=== PATIENT | male | born 1950 ===

== ENCOUNTER 2025-06-22 06:31 | Emergency (ER) | payer MEDICAID, SELFPAY ==
--- NOTE | ~2025-06-22 | CT_ITS ---
CLINICAL HISTORY: trauma CT head without contrast Comparison: None provided Findings: No intra-axial mass, midline shift, hydrocephalus, or acute hemorrhage. Prominence of the sulci and ventricles are compatible with age-related volume loss. Periventricular white matter hypodensities are nonspecific though likely reflect chronic sequelae of microangiopathic etiology. The visualized paranasal sinuses and mastoid air cells are normal. The orbits are unremarkable. There is no acute fracture. IMPRESSION: No acute intracranial findings. This document has been electronically signed by: Guzman Avendano MD on 06/22/2025 08:56:43
--- NOTE | ~2025-06-22 | CT_ITS ---
CLINICAL HISTORY: trauma CT cervical spine without contrast Comparison: None provided Findings: There is straightening of the normal cervical lordosis. Multilevel degenerative changes are demonstrated from C3 through T1 with intervertebral disc and vertebral body height loss with ankylosis of C3 and C4 and C6 and C7, in addition to uncovertebral hypertrophy and osteophyte formation. Findings result in moderate canal stenosis at C3-C4, C4-C5 and C5-C6. No acute fractures or dislocations. No acute findings on limited view of the intracranial contents. Soft tissues of the neck are normal. Lung apices are clear. IMPRESSION: No acute cervical spine findings. This document has been electronically signed by: Guzman Avendano MD on 06/22/2025 08:53:17
[2025-06-22 06:36] VITALS: BP 144/104; PULSE 79; O2SAT 98
[2025-06-22 06:40] VITALS: BP 139/106; PULSE 71; RESP 20; TEMP 36.6; O2SAT 99; BMI 27.2
--- OUTSIDE RECORDS SUMMARY | 2025-06-22 06:56 | XMS_ITS | Encounter Summary ---
Author Organization [employer] Address [address] [place] [address] Care Team Providers Care Forestry Fire Aid Name Role Phone Regino Brooke MD Primary Care Provider [phone] Encounter Details Date Type Department Care Team (Late st Contact Info) Description 07/20/2024 Lab Requisition [facility] - Main Lab [address] [place] [address] Regino Brooke MD [address] [place] [address] COVID-19 Social History Tobacco Use Types Packs/Day Years Used Date Smoking Tobacco: Never Assessed Sex and Gender Information Value Date Recorded Sex Assigned at Not on file Legal Sex Male 8:35 PM EST Gender Identity Not on file Sexual Orientation Not on file documented as of this encounter Plan of Treatment Not on file documented as of this encounter Procedures Procedure Name Priority Date/Time Associated Diagnosis Comments [id number], RSV, FLU A AND B QUALITATIVE RT-PCR, LOCAL REFERENCE LAB Routine 07/20/2024 7:00 AM EST COVID-19 documented in this encounter Results * (ABNORMAL) [id number], RSV, Influenza A and B qualitative RT-PCR (07/20/2024 7:00 AM EST) SARS COV-2 Not Detected Not Detected LAB MOLECULAR DIAGNOSTICS METHOD 07/20/2024 12:40 PM EST [facility] H[facility] LAB Comment: Disclaimer: The manner in which this information is used to guide patient care is the responsibility of the healthcare provider. Testing was performed using the [employer] m SARS-CoV-2 test. This test has been authorized by FDA under an Emergency Use Authorization (EUA). This test is only authorized for the duration of time the declaration that circumstances exist justifying the authorization of the emergency use of in vitro diagnostic tests for detection of SARS-CoV-2 virus and/or diagnosis of COVID-19 infection under section 564(b)(1) of the Act, 21 U.S.C. 360bbb- 3(b)(1), unless the authorization is terminated or revoked sooner. Fact sheet for Healthcare Providers can be found at: https://www.fda.gov/media/297598/download Fact sheet for Patients can be found at: https://www.fda.gov/media/374319/download Influenza A PCR Detected(A ) Not Detected LAB MOLECULAR DIAGNOSTICS METHOD 07/20/2024 12:[address] [facility] Influenza B PCR Not Detected Not Detected LAB MOLECULAR DIAGNOSTICS METHOD 07/20/2024 12:40 PM [facility] RSV PCR Not Detected Not Detected LAB MOLECULAR DIAGNOSTICS METHOD 07/20/2024 12:40 PM [facility] Swab Nasopharyngeal structure / Unknown 07/20/2024 7:00 AM EST 07/20/2024 9:14 AM EST Regino Brooke MD LAB MICROBIOLOGY - GENERAL O RDERABLES Final Result [facility] [address] [place] [address], documented in this encounter Visit Diagnoses Diagnosis COVID-19 documented in this encounter Additional Health Concerns Infection Onset Date Last Indicated Resolved Time Respiratory Rule-Out 07/20/2024 07/20/20242 024 12:40 PM EST Influenza 07/20/2024 07/20/2024 08/13/2024 7:05 PM EST C. difficile Rule-Out 02/16/2025 02/16/20252024 11:14 AM EDT documented as of this encounter Care Teams Forestry Fire Aid Relationship Specialty Start Date End Date Regino Brooke MD [address] [place] [address] PCP - General Family Medicine 07/12/24 documented as of this encounter
--- OUTSIDE RECORDS SUMMARY | 2025-06-22 06:56 | XMS_ITS | Encounter Summary ---
Author Organization [facility] Address [address] [place] [address] Care Team Providers Care Hardware Supplies Sales Representative Name Role Phone Regino Brooke MD Primary Care Provider [phone]- [phone] Encounter Details Date Type Department Care Team (Latest Contact Info) Description 07/23/2024 Lab Requisition [facility] - Main Lab [address] [place] [address] Regino Brooke MD [facility] [place] [address] Influenza due to identified novel influenza A virus with gastrointestinal manifestations Social History Tobacco Use Types Packs/Day Years [...] Procedure Name Priority Date/Time Associated Diagnosis Comments COMPLETE BLOOD COUNT Routine 07/23/2024 4:55 AM EST Influenza due to identified novel influenza A virus with gastrointestinal manifestations BASIC METABOLIC PANEL Routine 07/23/2024 4:55 AM EST Influenza due to identified novel influenza A virus with gastrointestinal manifestations documented in this encounter Results * (ABNORMAL) Basic metabolic panel (07/23/2024 4:55 AM EST) Sodium 139 133 - 145 mmol/L LAB CHEMISTRY METHOD 07/23/2024 2:39 PM EST [facility] Potassium 3.8 3.5 - 5.5 mmol/L LAB CHEMISTRY METHOD 07/23/2024 2:39 PM EST [facility] Chloride 105 96 - 110 mmol/L LAB CHEMISTRY METHOD 07/23/2024 2:39 PM [facility] CO2 24 21 - 32 mmol/L LAB CHEMISTRY METHOD 07/23/2024 2:39 PM [facility] Anion Gap 10 3 - 11 LAB CHEMISTRY METHOD 07/23/2024 2:39 PM [facility] Glucose 73 70 - 100 mg/dL LAB CHEMISTRY METHOD 07/23/2024 2:39 PM [facility] BUN 16 5 - 25 mg/dL LAB CHEMISTRY METHOD 07/23/2024 2:39 PM [facility] Creatinine 1.29 0.70 - 1.30 mg/dL LAB CHEMISTRY METHOD 07/23/2024 2:39 PM [facility] eGFR 57(L) >=60 mL/min/1. 73m2 LAB CHEMISTRY METHOD 07/23/2024 2:39 PM [facility] Comment:Calculation based on the Chronic Kidney Disease Epidemiology Collaboration (CKD-EPI) equation refit without adjustment for race. BUN/Creatinine Ratio 12.4 LAB CHEMISTRY METHOD 07/23/2024 2:39 PM [facility] Calcium 8.1(L) 8.5 - 10.5 mg/dL LAB CHEMISTRY METHOD 07/23/2024 2:39 PM [facility] Blood Venous blood specimen / Unknown Venipuncture / Unknown 07/23/2024 4:55 AM EST 07/23/2024 11:02 AM EST us Regino Brooke MD LAB BLOOD ORDERABLES Final R esult [facility] [address] [place] [address], * (ABNORMAL) Complete blood count (07/23/2024 4:55 AM EST) WBC 3.9(L) 4.8 - 10.8 K/mcL LAB HEMETOLOGY METHOD 07/23/2024 12:29 PM [facility] RBC 4.40(L) 4.50 - 5.50 M/mcL LAB HEMETOLOGY METHOD 07/23/2024 12:29 PM [facility] Hemoglobin 13.8 13.5 - 17.5 g/dL LAB HEMETOLOGY METHOD 07/23/2024 12:29 PM [facility] Hematocrit 43.0 42.0 - 54.0 % LAB HEMETOLOGY METHOD 07/23/2024 12:29 PM [facility] MCV 97.3 79.0 - 98.0 FL LAB HEMETOLOGY METHOD 07/23/2024 12:29 PM [facility] MCH 31.2 27.0 - 32.0 pcg LAB HEMETOLOGY METHOD 07/23/2024 12:29 PM [facility] MCHC 32.1 32.0 - 37.0 g/dL LAB HEMETOLOGY METHOD 07/23/2024 12:29 PM [facility] RDW 14.2 11.0 - 15.0 % LAB HEMETOLOGY METHOD 07/23/2024 12:29 PM [facility] Platelets 161 130 - 400 K/mcL LAB HEMETOLOGY METHOD 07/23/2024 12:29 PM [facility] MPV 9.6 7.0 - 11.0 FL LAB HEMETOLOGY METHOD 07/23/2024 12:29 PM [facility] NRBC 0.0 <1.0 % LAB HEMETOLOGY METHOD 07/23/2024 12:29 PM [facility] NRBC Absolute 0.00 <0.10 K/mcL LAB HEMETOLOGY METHOD 07/23/2024 12:29 PM [facility] Blood Venous blood specimen / Unknown Venipuncture / Unknown 07/23/2024 4:55 AM EST 07/23/2024 11:02 AM EST us Regino Brooke MD LAB BLOOD ORDERABLES Final R esult [facility] ([facility]) [facility] [address] [place] [address], documented in this encounter Visit Diagnoses Diagnosis Influenza due to identified novel influenza A virus with gastrointestinal manifestations documented in this encounter Additional Health Concerns Infection Onset Date Last Indicated Resolved Time Influenza 07/20/2024 07/20/2024 08/13/2024 7:05 PM EST C. difficile Rule-Out 02/16/2025 02/16/20252024 11:14 AM EDT documented as of this encounter Care Teams Hardware Supplies Sales Representative Relationship Specialty Start Date End Date Regino Brooke MD [address] [place] [address] PCP - General Family Medicine 07/12/24 documented as of this encounter
--- OUTSIDE RECORDS SUMMARY | 2025-06-22 06:56 | XMS_ITS | Encounter Summary ---
Author Organization [employer] Address [address] [place] [address] Care Team Providers Care Anesthesiologist And Critical Care Name Role Phone Regino Brooke MD Primary Care Provider [phone] Encounter Details Date Type Department Care Team (Late st Contact Info) Description 10/29/2024 Lab Requisition [facility] - Main Lab [address] [place] [address] Regino Brooke MD [address] [place] [address] Anemia, unspecified Social History Tobacco Use Types Packs/Day Years [...] Procedure Name Priority Date/Time Associated Diagnosis Comments CBC WITH AUTO DIFFERENTIAL Routine 10/29/2024 4:46 AM EDT Anemia, unspecified CBC AND DIFFERENTIAL Routine 10/29/2024 4:46 AM EDT Anemia, unspecified documented in this encounter Results * (ABNORMAL) CBC auto differential (10/29/2024 4:46 AM EDT) WBC 3.7(L) 4.8 - 10.8 K/[facility] LAB HEMETOLOGY METHOD 10/29/2024 12:27 PM EDT [facility] RBC 4.10(L) 4.50 - 5.50 M/mcL LAB HEMETOLOGY METHOD 10/29/2024 12:27 PM EDT [facility] Hemoglobin 13.2(L) 13.5 - 17.5 g/dL LAB HEMETOLOGY METHOD 10/29/2024 12:27 PM [facility] Hematocrit 39.7(L) 42.0 - 54.0 % LAB HEMETOLOGY METHOD 10/29/2024 12:27 PM [facility] MCV 96.8 79.0 - 98.0 FL LAB HEMETOLOGY METHOD 10/29/2024 12:27 PM [facility] MCH 32.2(H) 27.0 - 32.0 pcg LAB HEMETOLOGY METHOD 10/29/2024 12:27 PM [facility] MCHC 33.2 32.0 - 37.0 g/dL LAB HEMETOLOGY METHOD 10/29/2024 12:27 PM [facility] RDW 14.4 11.0 - 15.0 % LAB HEMETOLOGY METHOD 10/29/2024 12:27 PM [facility] Platelets 157 130 - 400 K/mcL LAB HEMETOLOGY METHOD 10/29/2024 12:27 PM [facility] MPV 9.5 7.0 - 11.0 FL LAB HEMETOLOGY METHOD 10/29/2024 12:27 PM [facility] NRBC 0.0 <1.0 % LAB HEMETOLOGY METHOD 10/29/2024 12:27 PM [facility] NRBC Absolute 0.00 <0.10 K/mcL LAB HEMETOLOGY METHOD 10/29/2024 12:27 PM [facility] Neutrophils Relative 42.1 % LAB HEMETOLOGY METHOD 10/29/2024 12:27 PM [facility] Lymphocytes Relative 41.7 % LAB HEMETOLOGY METHOD 10/29/2024 12:27 PM [facility] Monocytes Relative 10.4 % LAB HEMETOLOGY METHOD 10/29/2024 12:27 PM EDT [facility] Eosinophils Relative 5.2 % LAB HEMETOLOGY METHOD 10/29/2024 12:27 PM EDT [facility] Basophils Relative 0.3 % LAB [facility]Y [facility] Immature Granulocytes Relative 0.3 % LAB HEMETOLOGY METHOD 10/29/2024 12:27 PM EDT [facility] Neutrophils Absolute 1.55 1.50 - 7.00 K/mcL LAB HEMETOLOGY METHOD 10/29/2024 12:27 PM EDT [facility] Lymphocytes Absolute 1.53 1.00 - 5.00 K/mcL LAB HEMETOLOGY METHOD 10/29/2024 [facility] Monocytes Absolute 0.38 0.20 - 1.00 K/mcL LAB HEMETOLOGY METHOD 10/29/2024 12:27 PM EDT [facility] Eosinophils Absolute 0.19 0.00 - 0.50 K/mcL LAB HEMETOLOGY METHOD 10/29/2024 12:27 PM [facility] Basophils Absolute 0.01 0.00 - 0.20 K/mcL LAB HEMETOLOGY METHOD 10/29/2024 12:27 PM [facility] Immature Granulocytes Absolute 0.01 0.00 - 0.03 K/mcL LAB HEMETOLOGY METHOD 10/29/2024 12:27 PM T [facility] Blood Venous blood specimen / Unknown Venipuncture / Unknown 10/29/2024 4:46 AM EDT 10/29/2024 10:40 AM EDT us Regino Brooke MD LAB BLOOD ORDERABLES Final R esult [facility] [address] [place] [address], documented in this encounter Visit Diagnoses Diagnosis Anemia, unspecified documented in this encounter Additional Health Concerns Infection Onset Date Last Indicated Resolved Time C. difficile Rule-Out 02/16/2025 02/16/20252024 11:14 AM EDT documented as of this encounter Care Teams Anesthesiologist And Critical Care Relationship Specialty Start Date End Date Regino Brooke MD [address] [place] [address] PCP - General Family Medicine 07/12/24 documented as of this encounter
--- OUTSIDE RECORDS SUMMARY | 2025-06-22 06:56 | XMS_ITS | Encounter Summary ---
Author Organization [facility] Address [address] [place] [address] Care Team Providers Care Assistant Quality Manager Name Role Phone Regino Brooke MD Primary Care Provider [phone] Encounter Details Date Type Department Care Team (Late st Contact Info) Description 02/06/2025 Lab Requisition [facility] - Main Lab [address] [place] [address] Regino Brooke MD [address] [place] [address] Hypokalemia Social History Tobacco Use Types Packs/Day Years [...] Procedure Name Priority Date/Time Associated Diagnosis Comments MAGNESIUM Routine 02/07/2025 5:02 AM EDT Hypokalemia BASIC METABOLIC PANEL Routine 02/07/2025 5:02 AM EDT Hypokalemia documented in this encounter Results * Magnesium (02/07/2025 5:02 AM EDT) Magnesium 2.0 1.9 - 2.6 mg/dL LAB CHEMISTRY METHOD 02/07/2025 9:50 AM EDT [facility] Comment:Hemolysis present Blood Venous blood specimen / Unknown Venipuncture / Unknown 02/07/2025 5:02 AM EDT 02/07/2025 7:54 AM EDT Regino Brooke MD LAB BLOOD ORDERABLES Final R esult [facility] [address] [place] [address], * (ABNORMAL) Basic metabolic panel (02/07/2025 5:02 AM EDT) Sodium 141 133 - 145 mmol/L LAB CHEMISTRY METHOD 02/07/2025 9:50 AM EDT [facility] Potassium 4.5 3.5 - 5.5 mmol/L LAB CHEMISTRY METHOD 02/07/2025 9:50 AM T [facility] Comment:Hemolysis present Chloride 113(H) 96 - 110 mmol/L LAB CHEMISTRY METHOD 02/07/2025 9:50 AM [facility] CO2 20(L) 21 - 32 mmol/L LAB CHEMISTRY METHOD 02/07/2025 9:50 AM [facility] Anion Gap 8 3 - 11 LAB CHEMISTRY METHOD 02/07/2025 9:50 AM [facility] Glucose 65(L) 70 - 100 mg/dL LAB CHEMISTRY METHOD 02/07/2025 9:50 AM [facility] BUN 12 5 - 25 mg/dL LAB CHEMISTRY METHOD 02/07/2025 9:50 AM [facility] Creatinine 1.47(H) 0.70 - 1.30 mg/dL LAB CHEMISTRY METHOD 02/07/2025 9:50 AM [facility] eGFR 49(L) >=60 mL/min/1. 73m2 LAB CHEMISTRY METHOD 02/07/2025 9:50 AM [facility] Comment:Calculation based on the Chronic Kidney Disease Epidemiology Collaboration (CKD-EPI) equation refit without adjustment for race. BUN/Creatinine Ratio 8.2 LAB CHEMISTRY METHOD 02/07/2025 9:50 AM [facility] Calcium 8.8 8.5 - 10.5 mg/dL LAB CHEMISTRY METHOD 02/07/2025 9:50 AM EDT [facility] Blood Venous blood specimen / Unknown Venipuncture / Unknown 02/07/2025 5:02 AM EDT 02/07/2025 7:54 AM EDT us Regino Brooke MD LAB BLOOD ORDERABLES Final R esult [facility] [address] [place] [address], documented in this encounter Visit Diagnoses Diagnosis Hypokalemia Hypopotassemia documented in this encounter Additional Health Concerns Infection Onset Date Last Indicated Resolved Time C. difficile Rule-Out 02/16/2025 02/16/20252024 11:14 AM EDT documented as of this encounter Care Teams Assistant Quality Manager Relationship Specialty Start Date End Date Regino Brooke MD [address] [place] [address] PCP - General Family Medicine 07/12/24 documented as of this encounter
--- OUTSIDE RECORDS SUMMARY | 2025-06-22 06:56 | XMS_ITS | Encounter Summary ---
Author Organization [employer] Address [address] [place] [address] Care Team Providers Care Network Technician Name Role Phone Regino Brooke MD Primary Care Provider [phone] Encounter Details Date Type Department Care Team (Late st Contact Info) Description 02/20/2025 Lab Requisition [facility] - Main Lab [address] [place] [address] Regino Brooke MD [address] [place] [address] Anemia, unspecified; Chronic kidney disease, unspecified Social History Tobacco Use Types Packs/Day [...] Associated Diagnosis Comments COMPLETE BLOOD COUNT Routine 02/20/2025 6:53 AM EDT Anemia, unspecified Chronic kidney disease, unspecified COMPREHENSIVE METABOLIC PANEL Routine 02/20/2025 6:53 AM EDT Anemia, unspecified Chronic kidney disease, unspecified documented in this encounter Results * (ABNORMAL) Comprehensive metabolic panel (02/20/2025 6:53 AM EDT) Sodium 141 133 - 145 mmol/L LAB CHEMISTRY METHOD 02/20/2025 11:14 AM EDT [facility] Potassium 3.8 3.5 - 5.5 mmol/L LAB CHEMISTRY METHOD 02/20/2025 11:14 AM EDT [facility] Chloride 108 96 - 110 mmol/L LAB CHEMISTRY METHOD 02/20/2025 11:14 AM [facility] CO2 26 21 - 32 mmol/L LAB CHEMISTRY METHOD 02/20/2025 11:14 AM [facility] Anion Gap 7 3 - 11 LAB CHEMISTRY METHOD 02/20/2025 11:14 AM [facility] Glucose 66(L) 70 - 100 mg/dL LAB CHEMISTRY METHOD 02/20/2025 11:14 AM [facility] BUN 13 5 - 25 mg/dL LAB CHEMISTRY METHOD 02/20/2025 11:14 AM [facility] Creatinine 1.68(H) 0.70 - 1.30 mg/dL LAB CHEMISTRY METHOD 02/20/2025 11:14 AM [facility] eGFR 42(L) >=60 mL/min/1. 73m2 LAB CHEMISTRY METHOD 02/20/2025 11:14 AM [facility] Comment:Calculation based on the Chronic Kidney Disease Epidemiology Collaboration (CKD-EPI) equation refit without adjustment for race. BUN/Creatinine Ratio 7.7 LAB CHEMISTRY METHOD 02/20/2025 11:14 AM [facility] Calcium 8.7 8.5 - 10.5 mg/dL LAB CHEMISTRY METHOD 02/20/2025 11:14 AM [facility] AST (SGOT) 19 10 - 42 unit/L LAB CHEMISTRY METHOD 02/20/2025 11:14 AM [facility] ALT (SGPT) 7(L) 10 - 60 unit/L LAB CHEMISTRY METHOD 02/20/2025 11:14 AM [facility] Alkaline Phosphatase 94 42 - 121 unit/L LAB CHEMISTRY METHOD 02/20/2025 11:14 AM [facility] Total Protein 6.7 6.0 - 8.0 g/dL LAB CHEMISTRY METHOD 02/20/2025 11:14 AM [facility] Albumin 2.9(L) 3.2 - 5.0 g/dL LAB CHEMISTRY METHOD 02/20/2025 11:14 AM T [facility] Total Bilirubin 1.0 0.0 - 1.4 mg/dL LAB CHEMISTRY METHOD 02/20/2025 11:14 AM [facility] Blood Venous blood specimen / Unknown Venipuncture / Unknown 02/20/2025 6:53 AM EDT 02/20/2025 9:31 AM EDT us Regino Brooke MD LAB BLOOD ORDERABLES Final R esult [facility] [address] [place] [address], * (ABNORMAL) Complete blood count (02/20/2025 6:53 AM EDT) WBC 3.7(L) 4.8 - 10.8 K/mcL LAB HEMETOLOGY METHOD 02/20/2025 10:21 AM [facility] RBC 4.70 4.50 - 5.50 M/mcL LAB HEMETOLOGY METHOD 02/20/2025 10:21 AM [facility] Hemoglobin 14.5 13.5 - 17.5 g/dL LAB HEMETOLOGY METHOD 02/20/2025 10:21 AM [facility] Hematocrit 44.7 42.0 - 54.0 % LAB HEMETOLOGY METHOD 02/20/2025 10:21 AM [facility] MCV 95.1 79.0 - 98.0 FL LAB HEMETOLOGY METHOD 02/20/2025 10:21 AM [facility] MCH 30.9 27.0 - 32.0 pcg LAB HEMETOLOGY METHOD 02/20/2025 10:21 AM [facility] MCHC 32.4 32.0 - 37.0 g/dL LAB HEMETOLOGY METHOD 02/20/2025 10:21 AM EDT [facility] RDW 15.0 11.0 - 15.0 % LAB HEMETOLOGY METHOD 02/20/2025 10:21 AM EDT [facility] Platelets 203 130 - 400 K/mcL LAB HEMETOLOGY METHOD 02/20/2025 10:21 AM EDT [facility] MPV 9.8 7.0 - 11.0 FL LAB HEMETOLOGY METHOD 02/20/2025 10:21 AM EDT [facility] NRBC 0.0 <1.0 % LAB HEMETOLOGY METHOD 02/20/2025 10:21 AM EDT [facility] NRBC Absolute 0.00 <0.10 K/mcL LAB HEMETOLOGY METHOD 02/20/2025 10:21 AM EDT [facility] Blood Venous blood specimen / Unknown Venipuncture / Unknown 02/20/2025 6:53 AM EDT 02/20/2025 9:31 AM EDT Regino Brooke MD LAB BLOOD ORDERABLES Final R esult [facility] [address] [place] [address], documented in this encounter Visit Diagnoses Diagnosis Anemia, unspecified Chronic kidney disease, unspecified documented in this encounter Care Teams Network Technician Relationship Specialty Start Date End Date Regino Brooke MD [address] [place] [address] PCP - General Family Medicine 07/12/24 documented as of this encounter
--- OUTSIDE RECORDS SUMMARY | 2025-06-22 06:56 | XMS_ITS | Encounter Summary ---
Author Organization [employer] [facility] Address [address] [place] [address] Care Team Providers Care Nursing Service Administrator Name Role Phone Regino Brooke MD Primary Care Provider [phone] Encounter Details Date Type Department Care Team (Late st Contact Info) Description 12/28/2024 Lab Requisition [facility] - Main Lab [address] [facility] [place] [address] Social History Tobacco Use Types Packs/Day Years Used Date Smoking Tobacco: Never Assessed Sex and Gender Information Value Date Recorded Sex Assigned at Not on file Legal Sex Male 8:35 PM EST Gender Identity Not on file Sexual Orientation Not on file documented as of this encounter Plan of Treatment Not on file documented as of this encounter Visit Diagnoses Not on filedocumented in this encounter Additional Health Concerns Infection Onset Date Last Indicated Resolved Time C. difficile Rule-Out 02/16/2025 02/16/20252024 11:14 AM EDT documented as of this encounter Care Teams Nursing Service Administrator Relationship Specialty Start Date End Date Regino Brooke MD [address] [place] [address] PCP - General Family Medicine 07/12/24 documented as of this encounter
--- OUTSIDE RECORDS SUMMARY | 2025-06-22 06:56 | XMS_ITS | Encounter Summary ---
Author Organization [employer] Address [address] [place] [address] Care Team Providers Care Sausage Stringer Name Role Phone Regino Brooke MD Primary Care Provider [phone] Encounter Details Date Type Department Care Team (Late st Contact Info) Description 10/26/2024 Lab Requisition [facility] - Main Lab [address] [facility] [place] [address] Regino Brooke MD [address] [place] [address] Other chcf (current) drug therapy; Vitamin D deficiency, unspecified; Essential (primary) hypertension Social History Tobacco Use Types Packs/Day Years [...] Procedure Name Priority Date/Time Associated Diagnosis Comments RED - PLAIN Routine 10/26/2024 7:38 AM EDT Other chcf (current) drug therapy Vitamin D deficiency, unspecified Essential (primary) hypertension DRUG ABUSE SCREEN, SERUM Routine 10/26/2024 7:38 AM EDT Other chcf (current) drug therapy Vitamin D deficiency, unspecified Essential (primary) hypertension COMPLETE BLOOD COUNT Routine 10/26/2024 7:38 AM EDT Other chcf (current) drug therapy Vitamin D deficiency, unspecified Essential (primary) hypertension BASIC METABOLIC PANEL Routine 10/26/2024 7:38 AM EDT Other assistant terminal manager (current) drug therapy Vitamin D deficiency, unspecified Essential (primary) hypertension documented in this encounter Results * Red tube (10/26/2024 7:38 AM EDT) Extra Tube Hold for add-ons. 10/26/2024 12:01 PM EDT [facility] Comment:Auto resulted. Blood Venous blood specimen / Unknown Venipuncture / Unknown 10/26/2024 7:38 AM EDT 10/26/2024 10:56 AM EDT us Regino Brooke MD LAB BLOOD ORDERABLES Final R esult [facility] [address] [place] [address], * Drug abuse screen, serum (10/26/2024 7:38 AM EDT) Amphetamine, Serum, Qualitative Negative 10/29/2024 1:23 PM EDT [facility] Barbiturate, Serum, Qualitative Negative 10/29/2024 1:23 PM EDT [facility] Benzodiazepine, Serum, Qualitative Negative 10/29/2024 1:23 PM EDT [facility] Cocaine, Serum, Qualitative Negative 10/29/2024 1:23 PM EDT [facility] Methadone, Serum, Qualitative Negative 10/29/2024 1:23 PM EDT [facility] Opiate, Serum, Qualitative Negative 10/29/2024 1:23 PM EDT [facility] Phencyclidine, Serum, Qualitative Negative 10/29/2024 1:23 PM EDT [facility] Propoxyphene, Serum, Qualitative Negative 10/29/2024 1:23 PM EDT [facility] THC, Serum, Qualitative Negative 10/29/2024 1:23 PM EDT [facility] Alcohol (Ethanol) Level Negative 10/29/2024 1:23 PM EDT [facility] Comment: Screen Decision Limits Drug Analyzed Screen Units ------ ----- Amphetamine 500 ng/mL Barbiturate 150 ng/mL Benzodiazepines 100 ng/mL Cocaine 150 ng/mL Ethanol 10 mg/dL Toxic Blood Ethanol >300 mg/dL Methadone 150 ng/mL Opiates 150 ng/mL Phencyclidine 12 ng/mL Propoxyphene 150 ng/mL THC (Cannabis) 50 ng/mL A positive immunoassay result on a serum drug screen is considered presumptive evidence for the presence of the drug or its metabolite. Since some immunoassay tests detect only inactive metabolites and others are sensitive to very low drug levels, positive results may not correlate with the patient's physiological state. For confirmation of positive immunoassay results by an alternate method or for consultation, please contact the laboratory. If applicable, any drug confirmation testing reported here was developed and the performance characteristics determined by [facility]. This confirmation testing has not been cleared or approved by the FDA. The laboratory is regulated under CLIA as qualified to perform high-complexity testing. This test is used for patient testing purposes. It should not be regarded as investigational or for research. Test performed at [facility], [address] , [place] [address] Adriana Flor MD, PhD - Upholstery Repairer Blood Venous blood specimen / Unknown Venipuncture / Unknown 10/26/2024 7:38 AM EDT 10/26/2024 10:56 AM EDT Regino Brooke MD LAB BLOOD ORDERABLES Final R esult [facility] [address] [place] [address] * (ABNORMAL) Basic metabolic panel (10/26/2024 7:38 AM EDT) Sodium 142 133 - 145 mmol/L LAB CHEMISTRY METHOD 10/26/2024 11:49 AM EDT [facility] Potassium 3.7 3.5 - 5.5 mmol/L LAB CHEMISTRY METHOD 10/26/2024 11:49 AM EDT [facility] Chloride 108 96 - 110 mmol/L LAB CHEMISTRY METHOD 10/26/2024 11:49 AM EDT [facility] CO2 26 21 - 32 mmol/L LAB CHEMISTRY METHOD 10/26/2024 11:49 AM EDT [facility] Anion Gap 8 3 - 11 LAB CHEMISTRY METHOD 10/26/2024 11:49 AM [facility] Glucose 66(L) 70 - 100 mg/dL LAB CHEMISTRY METHOD 10/26/2024 11:49 AM [facility] BUN 12 5 - 25 mg/dL LAB CHEMISTRY METHOD 10/26/2024 11:49 AM [facility] Creatinine 1.39(H) 0.70 - 1.30 mg/dL LAB CHEMISTRY METHOD 10/26/2024 11:49 AM [facility] eGFR 53(L) >=60 mL/min/1. 73m2 LAB CHEMISTRY METHOD 10/26/2024 11:49 AM [facility] Comment:Calculation based on the Chronic Kidney Disease Epidemiology Collaboration (CKD-EPI) equation refit without adjustment for race. BUN/Creatinine Ratio 8.6 LAB CHEMISTRY METHOD 10/26/2024 11:49 AM [facility] Calcium 8.5 8.5 - 10.5 mg/dL LAB CHEMISTRY METHOD 10/26/2024 11:49 AM [facility] Blood Venous blood specimen / Unknown Venipuncture / Unknown 10/26/2024 7:38 AM EDT 10/26/2024 10:56 AM EDT Regino Brooke MD LAB BLOOD ORDERABLES Final R esult [facility] [address] [place] [address], * (ABNORMAL) Complete blood count (10/26/2024 7:38 AM EDT) WBC 3.1(L) 4.8 - 10.8 K/mcL LAB HEMETOLOGY METHOD [facility] RBC 4.40(L) 4.50 - 5.50 M/mcL LAB HEMETOLOGY METHOD 10/26/2024 11:22 AM [facility] Hemoglobin 14.1 13.5 - 17.5 g/dL LAB HEMETOLOGY METHOD 10/26/2024 11:22 AM [facility] Hematocrit 43.4 42.0 - 54.0 % LAB HEMETOLOGY METHOD 10/26/2024 11:22 AM [facility] MCV 98.9(H) 79.0 - 98.0 FL LAB HEMETOLOGY METHOD 10/26/2024 11:22 AM [facility] MCH 32.1(H) 27.0 - 32.0 pcg LAB HEMETOLOGY METHOD 10/26/2024 11:22 AM [facility] MCHC 32.5 32.0 - 37.0 g/dL LAB HEMETOLOGY METHOD 10/26/2024 11:22 AM [facility] RDW 14.6 11.0 - 15.0 % LAB HEMETOLOGY METHOD 10/26/2024 11:22 AM [facility] Platelets 149 130 - 400 K/mcL LAB HEMETOLOGY METHOD 10/26/2024 11:22 AM [facility] MPV 10.1 7.0 - 11.0 FL LAB HEMETOLOGY METHOD 10/26/2024 11:22 AM [facility] NRBC 0.0 <1.0 % LAB HEMETOLOGY METHOD 10/26/2024 11:22 AM [facility] NRBC Absolute 0.00 <0.10 K/mcL LAB HEMETOLOGY METHOD 10/26/2024 11:22 AM [facility] Blood Venous blood specimen / Unknown Venipuncture / Unknown 10/26/2024 7:38 AM EDT 10/26/2024 10:56 AM EDT us Regino Brooke MD LAB BLOOD ORDERABLES Final R esult [facility] [address] [place] [address], documented in this encounter Visit Diagnoses Diagnosis Other chcf (current) drug therapy Vitamin D deficiency, unspecified Essential (primary) hypertension Unspecified essential hypertension documented in this encounter Additional Health Concerns Infection Onset Date Last Indicated Resolved Time C. difficile Rule-Out 02/16/2025 02/16/20252024 11:14 AM EDT documented as of this encounter Care Teams Sausage Stringer Relationship Specialty Start Date End Date Regino Brooke MD [address] [place] [address] PCP - General Family Medicine 07/12/24 documented as of this encounter
--- OUTSIDE RECORDS SUMMARY | 2025-06-22 06:56 | XMS_ITS | Encounter Summary ---
Author Organization [employer] Address [address] [place] [address] Care Team Providers Care Recreation Technician Name Role Phone Regino Brooke MD Primary Care Provider [phone] Encounter Details Date Type Department Care Team (Late st Contact Info) Description 01/03/2025 Lab Requisition [facility] - Main Lab [address] [place] [address] Regino Brooke MD [address] [place] [address] Benign prostatic hyperplasia without lower urinary tract symptoms; Chronic kidney disease, unspecified Social History Tobacco [...] Associated Diagnosis Comments COMPLETE BLOOD COUNT Routine 01/04/2025 6:20 AM EDT Benign prostatic hyperplasia without lower urinary tract symptoms Chronic kidney disease, unspecified BASIC METABOLIC PANEL Routine 01/04/2025 6:20 AM EDT Benign prostatic hyperplasia without lower urinary tract symptoms Chronic kidney disease, unspecified documented in this encounter Results * (ABNORMAL) Basic metabolic panel (01/04/2025 6:20 AM EDT) Sodium 139 133 - 145 mmol/L LAB CHEMISTRY METHOD 01/04/2025 8:34 AM EDT [facility] Potassium 3.8 3.5 - 5.5 mmol/L LAB CHEMISTRY METHOD 01/04/2025 8:34 AM EDT [facility] Chloride 105 96 - 110 mmol/L LAB CHEMISTRY METHOD 01/04/2025 8:34 AM [facility] CO2 30 21 - 32 mmol/L LAB CHEMISTRY METHOD 01/04/2025 8:34 AM [facility] Anion Gap 4 3 - 11 LAB CHEMISTRY METHOD 01/04/2025 8:34 AM [facility] Glucose 75 70 - 100 mg/dL LAB CHEMISTRY METHOD 01/04/2025 8:34 AM [facility] BUN 6 5 - 25 mg/dL LAB CHEMISTRY METHOD 01/04/2025 8:34 AM [facility] Creatinine 1.30 0.70 - 1.30 mg/dL LAB CHEMISTRY METHOD 01/04/2025 8:34 AM [facility] eGFR 57(L) >=60 mL/min/1. 73m2 LAB CHEMISTRY METHOD 01/04/2025 8:34 AM [facility] Comment:Calculation based on the Chronic Kidney Disease Epidemiology Collaboration (CKD-EPI) equation refit without adjustment for race. BUN/Creatinine Ratio 4.6 LAB CHEMISTRY METHOD 01/04/2025 8:34 AM [facility] Calcium 8.0(L) 8.5 - 10.5 mg/dL LAB CHEMISTRY METHOD 01/04/2025 8:34 AM [facility] Blood Venous blood specimen / Unknown Venipuncture / Unknown 01/04/2025 6:20 AM EDT 01/04/2025 7:52 AM EDT us Regino Brooke MD LAB BLOOD ORDERABLES Final R esult [facility] [address] [place] [address], * (ABNORMAL) Complete blood count (01/04/2025 6:20 AM EDT) WBC 3.7(L) 4.8 - 10.8 K/mcL LAB HEMETOLOGY METHOD 01/04/2025 8:21 AM [facility] RBC 3.90(L) 4.50 - 5.50 M/mcL LAB HEMETOLOGY METHOD 01/04/2025 8:21 AM [facility] Hemoglobin 11.9(L) 13.5 - 17.5 g/dL LAB HEMETOLOGY METHOD 01/04/2025 8:21 AM [facility] Hematocrit 37.6(L) 42.0 - 54.0 % LAB HEMETOLOGY METHOD 01/04/2025 8:21 AM [facility] MCV 97.7 79.0 - 98.0 FL LAB HEMETOLOGY METHOD 01/04/2025 8:21 AM [facility] MCH 30.9 27.0 - 32.0 pcg LAB HEMETOLOGY METHOD 01/04/2025 8:21 AM [facility] MCHC 31.6(L) 32.0 - 37.0 g/dL LAB HEMETOLOGY METHOD 01/04/2025 8:21 AM [facility] RDW 14.2 11.0 - 15.0 % LAB HEMETOLOGY METHOD 01/04/2025 8:21 AM [facility] Platelets 244 130 - 400 K/mcL LAB HEMETOLOGY METHOD 01/04/2025 8:21 AM [facility] MPV 9.4 7.0 - 11.0 FL LAB HEMETOLOGY METHOD 01/04/2025 8:21 AM [facility] NRBC 0.0 <1.0 % LAB HEMETOLOGY METHOD 01/04/2025 8:21 AM [facility] NRBC Absolute 0.00 <0.10 K/mcL LAB HEMETOLOGY METHOD 01/04/2025 8:21 AM EDT [facility] Blood Venous blood specimen / Unknown Venipuncture / Unknown 01/04/2025 6:20 AM EDT 01/04/2025 7:52 AM EDT us Regino Brooke MD LAB BLOOD ORDERABLES Final R esult [facility] [address] [place] [address], documented in this encounter Visit Diagnoses Diagnosis Benign prostatic hyperplasia without lower urinary tract symptoms Chronic kidney disease, unspecified documented in this encounter Additional Health Concerns Infection Onset Date Last Indicated Resolved Time C. difficile Rule-Out 02/16/2025 02/16/20252024 11:14 AM EDT documented as of this encounter Care Teams Recreation Technician Relationship Specialty Start Date End Date Regino Brooke MD [address] [place] [address] PCP - General Family Medicine 07/12/24 documented as of this encounter
--- OUTSIDE RECORDS SUMMARY | 2025-06-22 06:56 | XMS_ITS | Encounter Summary ---
Author Organization [employer] Address [address] [place] [address] Care Team Providers Care Bulk Plant Manager Name Role Phone Regino Brooke MD Primary Care Provider [phone] Encounter Details Date Type Department Care Team (Late st Contact Info) Description 11/12/[address] [facility] - Main Lab [address] [facility] [place] [address] Regino Brooke MD [address] [place] [address] Hemiplegia and hemiparesis following cerebral infarction affecting right dominant side (CMS/HCC V24, CMS/HCC V28) Social History Tobacco Use Types Packs/Day Years [...] Procedure Name Priority Date/Time Associated Diagnosis Comments BASIC METABOLIC PANEL Routine 11/13/2024 5:04 AM EDT Hemiplegia and hemiparesis following cerebral infarction affecting right dominant side (CMS/HCC V24, CMS/HCC V28) documented in this encounter Results * (ABNORMAL) Basic metabolic panel (11/13/2024 5:04 AM EDT) Sodium 137 133 - 145 mmol/L LAB CHEMISTRY METHOD 11/13/2024 10:31 AM [facility] Potassium 3.9 3.5 - 5.5 mmol/L LAB CHEMISTRY METHOD 11/13/2024 10:31 AM [facility] Chloride 105 96 - 110 mmol/L LAB CHEMISTRY METHOD 11/13/2024 10:31 AM [facility] CO2 27 21 - 32 mmol/L LAB CHEMISTRY METHOD 11/13/2024 10:31 AM [facility] Anion Gap 5 3 - 11 LAB CHEMISTRY METHOD 11/13/2024 10:31 AM [facility] Glucose 80 70 - 100 mg/dL LAB CHEMISTRY METHOD 11/13/2024 10:31 AM [facility] BUN 9 5 - 25 mg/dL LAB CHEMISTRY METHOD 11/13/2024 10:31 AM [facility] Creatinine 1.31(H) 0.70 - 1.30 mg/dL LAB CHEMISTRY METHOD 11/13/2024 10:31 AM [facility] eGFR 56(L) >=60 mL/min/1. 73m2 LAB CHEMISTRY METHOD 11/13/2024 10:31 AM [facility] Comment:Calculation based on the Chronic Kidney Disease Epidemiology Collaboration (CKD-EPI) equation refit without adjustment for race. BUN/Creatinine Ratio 6.9 LAB CHEMISTRY METHOD 11/13/2024 10:31 AM [facility] Calcium 8.4(L) 8.5 - 10.5 mg/dL LAB CHEMISTRY METHOD 11/13/2024 10:31 AM [facility] Blood Venous blood specimen / Unknown 11/13/2024 5:04 AM EDT 11/13/2024 9:28 AM EDT us Regino Brooke MD LAB BLOOD ORDERABLES Final R esult [facility] [address] [place] [address], documented in this encounter Visit Diagnoses Diagnosis Hemiplegia and hemiparesis following cerebral infarction affecting right dominant side (CMS/HCC V24, CMS/HCC V28) documented in this encounter Additional Health Concerns Infection Onset Date Last Indicated Resolved Time C. difficile Rule-Out 02/16/2025 02/16/20252024 11:14 AM EDT documented as of this encounter Care Teams Bulk Plant Manager Relationship Specialty Start Date End Date Regino Brooke MD [address] [place] [address] PCP - General Family Medicine 07/12/24 documented as of this encounter
--- OUTSIDE RECORDS SUMMARY | 2025-06-22 06:56 | XMS_ITS | Encounter Summary ---
Author Organization [employer] Address [address] [place] [address] Care Team Providers Care Thermostat Repairer Name Role Phone Regino Brooke MD Primary Care Provider [phone] Encounter Details Date Type Department Care Team (Late st Contact Info) Description 12/27/2024 Lab Requisition [facility] - Main Lab [address] [facility] [place] [address] Regino Brooke MD [address] [place] [address] Chronic kidney disease, unspecified; Hypo-osmolality and hyponatremia Social History Tobacco Use Types Packs/Day Years [...] Associated Diagnosis Comments COMPLETE BLOOD COUNT Routine 12/28/2024 5:05 AM EDT Chronic kidney disease, unspecified Hypo-osmolality and hyponatremia LIPASE Routine 12/28/2024 5:05 AM EDT Chronic kidney disease, unspecified Hypo-osmolality and hyponatremia AMYLASE Routine 12/28/2024 5:05 AM EDT Chronic kidney disease, unspecified Hypo-osmolality and hyponatremia COMPREHENSIVE METABOLIC PANEL Routine 12/28/2024 5:05 AM EDT Chronic kidney disease, unspecified Hypo-osmolality and hyponatremia documented in this encounter Results * Lipase (12/28/2024 5:05 AM EDT) Lipase 18 13 - 75 unit/L LAB CHEMISTRY METHOD 12/28/2024 11:02 AM EDT [facility] Blood Venous blood specimen / Unknown Venipuncture / Unknown 12/28/2024 5:05 AM EDT 12/28/2024 8:50 AM EDT Regino Brooke MD LAB BLOOD ORDERABLES Final R esult Performing Organization Address City/[facility]/ZIP Co de Phone Number [facility] [address] [place] [address], [place] [phone] * Amylase (12/28/2024 5:05 AM EDT) Amylase 78 25 - 115 unit/L LAB CHEMISTRY [facility] Blood Venous blood specimen / Unknown Venipuncture / Unknown 12/28/2024 5:05 AM EDT 12/28/2024 8:50 AM EDT Regino Brooke MD LAB BLOOD ORDERABLES Final R esult Performing Organization Address City/[facility]/ZIP Co de Phone Number [facility] [address] [place] [address], [place] [phone] * (ABNORMAL) Comprehensive metabolic panel (12/28/2024 5:05 AM EDT) Sodium 139 133 - 145 mmol/L LAB CHEMISTRY METHOD 12/28/2024 11:02 AM EDT [facility] Potassium 4.3 3.5 - 5.5 mmol/L LAB CHEMISTRY METHOD 12/28/2024 11:02 AM EDT [facility] Chloride 104 96 - 110 mmol/L LAB CHEMISTRY METHOD 12/28/2024 11:02 AM EDT [facility] CO2 27 21 - 32 mmol/L LAB CHEMISTRY METHOD 12/28/2024 11:02 AM EDT [facility] Anion Gap 8 3 - 11 LAB CHEMISTRY METHOD 12/28/2024 11:02 AM [facility] Glucose 67(L) 70 - 100 mg/dL LAB CHEMISTRY METHOD 12/28/2024 11:02 AM [facility] BUN 9 5 - 25 mg/dL LAB CHEMISTRY METHOD 12/28/2024 11:02 AM [facility] Creatinine 1.69(H) 0.70 - 1.30 mg/dL LAB CHEMISTRY METHOD 12/28/2024 11:02 AM [facility] eGFR 42(L) >=60 mL/min/1. 73m2 LAB CHEMISTRY METHOD 12/28/2024 11:02 AM [facility] Comment:Calculation based on the Chronic Kidney Disease Epidemiology Collaboration (CKD-EPI) equation refit without adjustment for race. BUN/Creatinine Ratio 5.3 LAB CHEMISTRY METHOD 12/28/2024 11:02 AM [facility] Calcium 7.9(L) 8.5 - 10.5 mg/dL LAB CHEMISTRY METHOD 12/28/2024 11:02 AM [facility] AST (SGOT) 20 10 - 42 unit/L LAB CHEMISTRY METHOD 12/28/2024 11:02 AM [facility] ALT (SGPT) 9(L) 10 - 60 unit/L LAB CHEMISTRY METHOD 12/28/2024 11:02 AM [facility] Alkaline Phosphatase 99 42 - 121 unit/L LAB CHEMISTRY METHOD 12/28/2024 11:02 AM [facility] Total Protein 6.3 6.0 - 8.0 g/dL LAB CHEMISTRY METHOD 12/28/2024 11:02 AM [facility] Albumin 2.3(L) 3.2 - 5.0 g/dL LAB CHEMISTRY METHOD 12/28/2024 11:02 AM [facility] Total Bilirubin 0.6 0.0 - 1.4 mg/dL LAB CHEMISTRY METHOD 12/28/2024 11:02 AM EDT [facility] Blood Venous blood specimen / Unknown Venipuncture / Unknown 12/28/2024 5:05 AM EDT 12/28/2024 8:50 AM EDT us Regino Brooke MD LAB BLOOD ORDERABLES Final R esult [facility] [address] [place] [address], * (ABNORMAL) Complete blood count (12/28/2024 5:05 AM EDT) WBC 3.9(L) 4.8 - 10.8 K/mcL LAB HEMETOLOGY METHOD 12/28/2024 9:36 AM [facility] RBC 4.20(L) 4.50 - 5.50 M/mcL LAB HEMETOLOGY METHOD 12/28/2024 9:36 AM EDT [facility] Hemoglobin 12.9(L) 13.5 - 17.5 g/dL LAB HEMETOLOGY METHOD 12/28/2024 9:36 AM [facility] Hematocrit 40.9(L) 42.0 - 54.0 % LAB HEMETOLOGY METHOD 12/28/2024 9:36 AM [facility] MCV 96.5 79.0 - 98.0 FL LAB HEMETOLOGY METHOD [facility]/28[facility]24 [facility] MCH 30.4 27.0 - 32.0 pcg LAB HEMETOLOGY METHOD 12/28/2024 9:36 AM T [facility] MCHC 31.5(L) 32.0 - 37.0 g/dL LAB HEMETOLOGY METHOD 12/28/2024 9:36 AM [facility] RDW 13.7 11.0 - 15.0 % LAB HEMETOLOGY METHOD 12/28/2024 9:36 AM EDT [facility] Platelets 324 130 - 400 K/mcL LAB HEMETOLOGY METHOD 12/28/2024 9:36 AM EDT [facility] MPV 8.9 7.0 - 11.0 FL LAB HEMETOLOGY METHOD 12/28/2024 9:36 AM EDT [facility] NRBC 0.0 <1.0 % LAB HEMETOLOGY METHOD 12/28/2024 9:36 AM EDT [facility] NRBC Absolute 0.00 <0.10 K/mcL LAB HEMETOLOGY METHOD 12/28/2024 9:36 AM EDT [facility] Blood Venous blood specimen / Unknown Venipuncture / Unknown 12/28/2024 5:05 AM EDT 12/28/2024 8:50 AM EDT us Regino Brooke MD LAB BLOOD ORDERABLES Final R esult [facility] [address] [place] [address], documented in this encounter Visit Diagnoses Diagnosis Chronic kidney disease, unspecified Hypo-osmolality and hyponatremia documented in this encounter Additional Health Concerns Infection Onset Date Last Indicated Resolved Time C. difficile Rule-Out 02/16/2025 02/16/20252024 11:14 AM EDT documented as of this encounter Care Teams Thermostat Repairer Relationship Specialty Start Date End Date Regino Brooke MD [address] [place] [address] PCP - General Family Medicine 07/12/24 documented as of this encounter
--- OUTSIDE RECORDS SUMMARY | 2025-06-22 06:56 | XMS_ITS | Encounter Summary ---
Author Organization [employer] Address [address] [place] [address] Care Team Providers Care Maintenance Technician Name Role Phone Regino Brooke MD Primary Care Provider [phone]- [phone] Encounter Details Date Type Department Care Team (Late st Contact Info) Description 07/16/2024 Lab Requisition [facility] - Main Lab 299 [facility] [place] [address] Regino Brooke MD [address] [place] [address] Other penitentiary (current) drug therapy; Essential (primary) hypertension; Vitamin D deficiency, unspecified Social History Tobacco Use Types Packs/Day [...] Procedure Name Priority Date/Time Associated Diagnosis Comments LIPID PANEL WITH REFLEX TO DIRECT LDL Routine 07/17/2024 6:15 AM EST Other terminologist (current) drug therapy Essential (primary) hypertension Vitamin D deficiency, unspecified CBC WITH AUTO DIFFERENTIAL Routine 07/17/2024 6:15 AM EST Other penitentiary (current) drug therapy Essential (primary) hypertension Vitamin D deficiency, unspecified VITAMIN D 25 HYDROXY Routine 07/17/2024 6:15 AM EST Other terminologist (current) drug therapy Essential (primary) hypertension Vitamin D deficiency, unspecified CBC AND DIFFERENTIAL Routine 07/17/2024 6:15 AM EST Other penitentiary (current) drug therapy Essential (primary) hypertension Vitamin D deficiency, unspecified THYROID STIMULATING HORMONE Routine 07/17/2024 6:15 AM EST Other penitentiary (current) drug therapy Essential (primary) hypertension Vitamin D deficiency, unspecified HEMOGLOBIN A1C Routine 07/17/2024 6:15 AM EST Other penitentiary (current) drug therapy Essential (primary) hypertension Vitamin D deficiency, unspecified COMPREHENSIVE METABOLIC PANEL Routine 07/17/2024 6:15 AM EST Other terminologist (current) drug therapy Essential (primary) hypertension Vitamin D deficiency, unspecified documented in this encounter Results * (ABNORMAL) CBC auto differential (07/17/2024 6:15 AM EST) WBC 4.3(L) 4.8 - 10.8 K/mcL LAB HEMETOLOGY METHOD 07/17/2024 11:37 AM [facility] RBC 4.30(L) 4.50 - 5.50 M/mcL LAB HEMETOLOGY METHOD 07/17/2024 11:37 AM [facility] Hemoglobin 13.5 13.5 - 17.5 g/dL LAB HEMETOLOGY METHOD 07/17/2024 11:37 AM [facility] Hematocrit 42.2 42.0 - 54.0 % LAB HEMETOLOGY METHOD 07/17/2024 11:37 AM [facility] MCV 97.7 79.0 - 98.0 FL LAB HEMETOLOGY METHOD 07/17/2024 11:37 AM [facility] MCH 31.3 27.0 - 32.0 pcg LAB HEMETOLOGY METHOD 07/17/2024 11:37 AM [facility] MCHC 32.0 32.0 - 37.0 g/dL LAB HEMETOLOGY METHOD 07/17/2024 11:37 AM [facility] RDW 14.5 11.0 - 15.0 % LAB HEMETOLOGY METHOD 07/17/2024 11:37 AM [facility] Platelets 143 130 - 400 K/mcL LAB HEMETOLOGY METHOD 07/17/2024 11:37 AM [facility] MPV 10.0 7.0 - 11.0 FL LAB HEMETOLOGY METHOD 07/17/2024 11:37 AM [facility] NRBC 0.0 <1.0 % LAB HEMETOLOGY METHOD 07/17/2024 11:37 AM [facility] NRBC Absolute 0.00 <0.10 K/mcL LAB HEMETOLOGY METHOD 07/17/2024 11:37 AM [facility] Neutrophils Relative 61.5 % LAB HEMETOLOGY METHOD 07/17/2024 11:37 AM [facility] Lymphocytes Relative 22.1 % LAB HEMETOLOGY METHOD 07/17/2024 11:37 AM [facility] Monocytes Relative 16.0 % LAB HEMETOLOGY METHOD 07/17/2024 11:37 AM [facility] Eosinophils Relative 0.0 % LAB HEMETOLOGY METHOD 07/17/2024 11:37 AM [facility] Basophils Relative 0.2 % LAB HEMETOLOGY METHOD 07/17/2024 11:37 AM [facility] Immature Granulocytes Relative 0.2 % LAB HEMETOLOGY METHOD 07/17/2024 11:37 AM [facility] Neutrophils Absolute 2.64 1.50 - 7.00 K/mcL LAB HEMETOLOGY METHOD 07/17/2024 11:37 AM [facility] Lymphocytes Absolute 0.95(L) 1.00 - 5.00 K/mcL LAB HEMETOLOGY METHOD 07/17/2024 11:37 AM [facility] Monocytes Absolute 0.69 0.20 - 1.00 K/mcL LAB HEMETOLOGY METHOD 07/17/2024 11:37 AM [facility] Eosinophils Absolute 0.00 0.00 - 0.50 K/[facility] LAB HEMETOLOGY METHOD 07/17/2024 11:37 AM EST [facility] Basophils Absolute 0.01 0.00 - 0.20 K/[facility] LAB HEMETOLOGY METHOD 07/17/2024 11:37 AM EST [facility] Immature Granulocytes Absolute 0.01 0.00 - 0.03 K/[facility] LAB HEMETOLOGY METHOD 07/17/2024 11:37 AM EST [facility] Blood Venous blood specimen / Unknown Venipuncture / Unknown 07/17/2024 6:15 AM EST 07/17/2024 10:31 AM EST Regino Brooke MD LAB BLOOD ORDERABLES Final R esult Performing Organization Address City/[facility]/ZIP Co de Phone Number [facility] [address] [place] [address], [place] [phone] * (ABNORMAL) Vitamin D 25 hydroxy (07/17/2024 6:15 AM EST) Vit D, 25-Hydroxy 29.3(L) 30.0 - 80.0 ng/mL LAB CHEMISTRY METHOD 07/17/2024 12:40 PM [facility] Blood Venous blood specimen / Unknown Venipuncture / Unknown 07/17/2024 6:15 AM EST 07/17/2024 10:30 AM EST Regino Brooke MD LAB BLOOD ORDERABLES Final R esult [facility] [address] [place] [address], [place] [phone] * Hemoglobin A1c (07/17/2024 6:15 AM EST) Hemoglobin A1C 5.6 <6.5 % LAB CHEMISTRY METHOD 07/17/2024 2:32 PM EST [facility] Mean Bld Glu Estim. 114 mg/dL LAB CHEMISTRY METHOD 07/17/2024 2:32 PM EST [facility] Blood Venous blood specimen / Unknown Venipuncture / Unknown 07/17/2024 6:15 AM EST 07/17/2024 10:31 AM EST Regino Brooke MD LAB BLOOD ORDERABLES Final R esult [facility] [address] [place] [address], [place] [phone] * Thyroid stimulating hormone (07/17/2024 6:15 AM EST) TSH 0.46 0.40 - 4.00 mcIU/mL LAB CHEMISTRY METHOD 07/17/2024 12:40 PM EST [facility] Blood Venous blood specimen / Unknown Venipuncture / Unknown 07/17/2024 6:15 AM EST 07/17/2024 10:30 AM EST us Regino Brooke MD LAB BLOOD ORDERABLES Final R esult Performing Organization Address City/[facility]/ZIP Co de Phone Number [facility] [address] [place] [address], [place] [phone] * Lipid panel with reflex to direct LDL (07/17/2024 6:15 AM EST) Cholesterol 125 0 - 200 mg/dL LAB CHEMISTRY METHOD 07/17/2024 12:12 PM EST [facility] Triglycerides 57 0 - 150 mg/dL LAB CHEMISTRY METHOD 07/17/2024 12:12 PM EST [facility] HDL 57 >=40 mg/dL LAB CHEMISTRY METHOD 07/17/2024 12:12 PM EST [facility] LDL Calculated 57 0 - 100 mg/dL LAB CHEMISTRY METHOD 07/17/2024 12:12 PM EST [facility] VLDL Cholesterol Sam 11.4 mg/dL LAB CHEMISTRY METHOD 07/17/2024 12:12 PM [facility] Non HDL Chol. (LDL+VLDL) 68 <145 mg/dL LAB CHEMISTRY METHOD 07/17/2024 12:12 PM [facility] Chol/HDL Ratio 2.2 0.0 - 4.4 LAB CHEMISTRY METHOD 07/17/2024 12:12 PM [facility] Blood Venous blood specimen / Unknown Venipuncture / Unknown 07/17/2024 6:15 AM EST 07/17/2024 10:30 AM EST us Regino Brooke MD LAB BLOOD ORDERABLES Final R esult [facility] [address] [place] [address], [place] [phone] * (ABNORMAL) Comprehensive metabolic panel (07/17/2024 6:15 AM EST) Sodium 135 133 - 145 mmol/L LAB CHEMISTRY METHOD 07/17/2024 12:12 PM [facility] Potassium 3.8 3.5 - 5.5 mmol/L LAB CHEMISTRY METHOD 07/17/2024 12:12 PM [facility] Chloride 101 96 - 110 mmol/L LAB CHEMISTRY METHOD 07/17/2024 12:12 PM [facility] CO2 29 21 - 32 mmol/L LAB CHEMISTRY METHOD 07/17/2024 12:12 PM [facility] Anion Gap 5 3 - 11 LAB CHEMISTRY METHOD 07/17/2024 12:12 PM [facility] Glucose 116(H) 70 - 100 mg/dL LAB CHEMISTRY METHOD 07/17/2024 12:12 PM [facility] BUN 16 5 - 25 mg/dL LAB CHEMISTRY METHOD 07/17/2024 12:12 PM [facility] Creatinine 1.54(H) 0.70 - 1.30 mg/dL LAB CHEMISTRY METHOD 07/17/2024 12:12 PM [facility] eGFR 46(L) >=60 mL/min/1. 73m2 LAB CHEMISTRY METHOD 07/17/2024 12:12 PM [facility] Comment:Calculation based on the Chronic Kidney Disease Epidemiology Collaboration (CKD-EPI) equation refit without adjustment for race. BUN/Creatinine Ratio 10.4 LAB CHEMISTRY METHOD 07/17/2024 12:12 PM [facility] Calcium 8.8 8.5 - 10.5 mg/dL LAB CHEMISTRY METHOD 07/17/2024 12:12 PM [facility] AST (SGOT) 22 10 - 42 unit/L LAB CHEMISTRY METHOD 07/17/2024 12:12 PM [facility] ALT (SGPT) 14 10 - 60 unit/L LAB CHEMISTRY METHOD 07/17/2024 12:12 PM [facility] Alkaline Phosphatase 76 42 - 121 unit/L LAB CHEMISTRY METHOD 07/17/2024 12:12 PM [facility] Total Protein 6.4 6.0 - 8.0 g/dL LAB CHEMISTRY METHOD 07/17/2024 12:12 PM [facility] Albumin 2.9(L) 3.2 - 5.0 g/dL LAB CHEMISTRY METHOD 07/17/2024 12:12 PM [facility] Total Bilirubin 0.5 0.0 - 1.4 mg/dL LAB CHEMISTRY METHOD 07/17/2024 12:12 PM [facility] Blood Venous blood specimen / Unknown Venipuncture / Unknown 07/17/2024 6:15 AM EST 07/17/2024 10:30 AM EST us Regino Brooke MD LAB BLOOD ORDERABLES Final R esult [facility] [address] [place] [address], documented in this encounter Visit Diagnoses Diagnosis Other terminologist (current) drug therapy Essential (primary) hypertension Unspecified essential hypertension Vitamin D deficiency, unspecified documented in this encounter Additional Health Concerns Infection Onset Date Last Indicated Resolved Time Respiratory Rule-Out 07/20/2024 07/20/2024 024 12:40 PM EST Influenza 07/20/2024 07/20/2024 08/13/2024 7:05 PM EST C. difficile Rule-Out 02/16/2025 02/16/20252024 11:14 AM EDT documented as of this encounter Care Teams Maintenance Technician Relationship Specialty Start Date End Date Regino Brooke MD [address] [place] [address] PCP - General Family Medicine 07/12/24 documented as of this encounter
--- OUTSIDE RECORDS SUMMARY | 2025-06-22 06:56 | XMS_ITS | Encounter Summary ---
Author Organization [employer] Address [address] [place] [address] Care Team Providers Care Dye Colorist Formulator Name Role Phone Regino Brooke MD Primary Care Provider [phone]- [phone] Encounter Details Date Type Department Care Team (Late st Contact Info) Description 07/11/2024 Lab Requisition [facility] - Main Lab 299 [facility] [email or web address] [address] Regino Brooke MD [address] [place] [address] Other long-term (current) drug therapy Social History Tobacco Use Types Packs/Day Years [...] Procedure Name Priority Date/Time Associated Diagnosis Comments DRUG SCREEN COMPREHENSIVE, SERUM Routine 07/11/2024 12:18 PM EST Other intermodal dispatcher (current) drug therapy documented in this encounter Results * Drug screen comprehensive, serum (07/11/2024 12:18 PM EST) Amphetamine, Serum, Qualitative Negative 07/16/2024 2:26 PM EST [facility] Barbiturate, Serum, Qualitative Negative 07/16/2024 2:26 PM EST [facility] Benzodiazepine, Serum, Qualitative Negative 07/16/2024 2:26 PM EST [facility] Cocaine, Serum, Qualitative Negative 07/16/2024 2:26 PM EST [facility] Methadone, Serum, Qualitative Negative 07/16/2024 2:26 PM EST [facility] Opiate, Serum, Qualitative Negative 07/16/2024 2:26 PM EST [facility] Phencyclidine, Serum, Qualitative Negative 07/16/2024 2:26 PM EST [facility] Propoxyphene, Serum, Qualitative Negative 07/16/2024 2:26 PM EST [facility] THC, Serum, Qualitative Negative 07/16/2024 2:26 PM EST [facility] Alcohol (Ethanol) Level Negative 07/16/2024 2:26 PM EST [facility] Comment: Screen Decision Limits Drug [...] or for consultation, please contact the laboratory. Trycyclic Antidepressants See Comment 07/16/2024 2:26 PM EST [facility] Comment:No tricyclic antidep ressants detected. Qualitative Drugs Detected None 07/16/2024 2:26 PM EST [facility] Quantitative Drugs Detected See Comment 07/16/2024 2:26 PM EST [facility] Comment: Acetaminophen <10 ug/mL Reference Range <25 ug/mL Acetaminophen toxic concentration: 4 hours after ingestion: >200 ug/mL 12 hours after ingestion: >50 ug/mL Serum Salicylates <5 mg/dL Reference Range <20 mg/dL Toxic level: >30 mg/dL If applicable, any drug confirmation testing reported here was developed and the performance characteristics determined by [facility]. This confirmation testing has not been cleared or approved by the FDA. The laboratory is regulated under CLIA as qualified to perform high-complexity testing. This test is used for patient testing purposes. It should not be regarded as investigational or for research. Test performed at [facility], [address] , [place] [address] Adriana Flor MD, PhD - Executive Sous Chef Blood Venous blood specimen / Unknown Venipuncture / Unknown 07/11/2024 12:18 PM EST 07/11/2024 2:00 PM EST us Regino Brooke MD LAB BLOOD ORDERABLES Final R esult [facility] [address] [place] [address] documented in this encounter Visit Diagnoses Diagnosis Other long-term (current) drug therapy documented in this encounter Additional Health Concerns Infection Onset Date Last Indicated Resolved Time Respiratory Rule-Out 07/20/2024 07/20/2024 024 12:40 PM EST Influenza 07/20/2024 07/20/2024 08/13/2024 7:05 PM EST C. difficile Rule-Out 02/16/2025 02/16/20252024 11:14 AM EDT documented as of this encounter Care Teams Dye Colorist Formulator Relationship Specialty Start Date End Date Regino Brooke MD [address] [place] [address] PCP - General Family Medicine 07/12/24 documented as of this encounter
--- OUTSIDE RECORDS SUMMARY | 2025-06-22 06:56 | XMS_ITS | Encounter Summary ---
Author Organization [employer] Address [address] [place] [address] Care Team Providers Care Lead Tinner Name Role Phone Regino Brooke MD Primary Care Provider [phone]- [phone] Encounter Details Date Type Department Care Team (Late st Contact Info) Description 02/17/2025 Lab Requisition [facility] - Main Lab 299 [facility] [place] [address] Regino Brooke MD [address] [place] [address] Diarrhea, unspecified Social History Tobacco Use Types Packs/Day [...] Procedure Name Priority Date/Time Associated Diagnosis Comments CLOSTRIDIUM DIFFICILE TOXIN Routine 02/16/2025 10:00 PM EDT Diarrhea, unspecified documented in this encounter Results * Clostridium difficile toxin (02/16/2025 10:00 PM EDT) Clostridium difficile GDH Antigen Negative Negative 02/17/2025 11:14 AM EDT [facility] C difficile Toxins A+B, EIA Negative Negative 02/17/2025 11:14 AM EDT [facility] Comment:NEGATIVE FOR TOXIN P RODUCING CLOSTRIDIOIDES DIFFICILE, NO ADDITIONAL TESTING IS NECESSARY. Stool Rectum structure / Unknown Non-blood Collection / Unknown 02/16/2025 10:00 PM EDT 02/17/2025 9:11 AM EDT us Regino Brooke MD LAB MICROBIOLOGY - GENERAL O RDERABLES Final Result [facility] [address] [place] [address], documented in this encounter Visit Diagnoses Diagnosis Diarrhea, unspecified documented in this encounter Additional Health Concerns Infection Onset Date Last Indicated Resolved Time C. difficile Rule-Out 02/16/2025 02/16/20252024 11:14 AM EDT documented as of this encounter Care Teams Lead Tinner Relationship Specialty Start Date End Date Regino Brooke MD [address] [place] [address] PCP - General Family Medicine 07/12/24 documented as of this encounter
--- OUTSIDE RECORDS SUMMARY | 2025-06-22 06:56 | XMS_ITS | Encounter Summary ---
Author Organization [facility] Address [address] [place] [address] Care Team Providers Care Furniture Assembler And Installer Name Role Phone Regino Brooke MD Primary Care Provider [phone]- [phone] Encounter Details Date Type Department Care Team (Late st Contact Info) Description 10/26/2024 Lab Requisition [facility] - Main Lab 299 [facility] [place] [address] Regino Brooke MD [address] [place] [id number] Acute cough Social History Tobacco Use Types Packs/Day Years Used Date Smoking Tobacco: Never Assessed Sex and Gender Information Value Date Recorded Sex Assigned at Not on file Legal Sex Male 8:35 PM EST Gender Identity Not on file Sexual Orientation Not on file documented as of this encounter Plan of Treatment Not on file documented as of this encounter Visit Diagnoses Diagnosis Acute cough documented in this encounter Additional Health Concerns Infection Onset Date Last Indicated Resolved Time C. difficile Rule-Out 02/16/2025 02/16/20252024 11:14 AM EDT documented as of this encounter Care Teams Furniture Assembler And Installer Relationship Specialty Start Date End Date Regino Brooke MD [address] [place] [address] PCP - General Family Medicine 07/12/24 documented as of this encounter
--- OUTSIDE RECORDS SUMMARY | 2025-06-22 06:56 | XMS_ITS | Encounter Summary ---
Author Organization [employer] Address [address] [place] [address] Care Team Providers Care Construction Field Engineer Name Role Phone Regino Brooke MD Primary Care Provider [phone] Encounter Details Date Type Department Care Team (Late st Contact Info) Description 11/12/2024 Lab Requisition [facility] - Main Lab [address] [place] [address] Regino Brooke MD [address] [place] [address] Hemiplegia and hemiparesis following cerebral [...] Associated Diagnosis Comments COMPLETE BLOOD COUNT Routine 11/12/2024 5:20 AM EDT Hemiplegia and hemiparesis following cerebral infarction affecting right dominant side (CMS/HCC V24, CMS/HCC V28) documented in this encounter Results * (ABNORMAL) Complete blood count (11/12/2024 5:20 AM EDT) WBC 3.2(L) 4.8 - 10.8 K/[facility] HEMETOLOGY METHOD 11/12/2024 11:52 AM EDT [facility] RBC 5.00 4.50 - 5.50 M/[facility] LAB HEMETOLOGY METHOD 11/12/2024 11:52 AM EDT [facility] Hemoglobin 15.8 13.5 - 17.5 g/dL LAB HEMETOLOGY METHOD 11/12/2024 11:52 AM EDT [facility] Hematocrit 50.4 42.0 - 54.0 % LAB HEMETOLOGY METHOD 11/12/2024 11:52 AM EDT [facility] MCV 101.2(H) 79.0 - 98.0 FL LAB HEMETOLOGY METHOD 11/12/2024 11:52 AM EDT [facility] MCH 31.7 27.0 - 32.0 pcg LAB HEMETOLOGY METHOD 11/12/2024 11:52 AM EDT [facility] MCHC 31.3(L) 32.0 - 37.0 g/dL LAB HEMETOLOGY METHOD 11/12/2024 11:52 AM [facility] RDW 14.6 11.0 - 15.0 % LAB HEMETOLOGY METHOD 11/12/2024 11:52 AM EDT [facility] Platelets 173 130 - 400 K/mcL LAB HEMETOLOGY METHOD 11/12/2024 11:52 AM EDT [facility] MPV 9.7 7.0 - 11.0 FL LAB HEMETOLOGY METHOD 11/12/2024 11:52 AM [facility] NRBC 0.0 <1.0 % LAB HEMETOLOGY METHOD 11/12/2024 11:52 AM EDT [facility] NRBC Absolute 0.00 <0.10 K/mcL LAB HEMETOLOGY METHOD 11/12/2024 11:52 AM [facility] Blood Venous blood specimen / Unknown Venipuncture / Unknown 11/12/2024 5:20 AM EDT 11/12/2024 9:42 AM EDT us Regino Brooke MD LAB BLOOD ORDERABLES Final R esult [facility] [address] [place] [address], documented in this encounter Visit Diagnoses Diagnosis Hemiplegia and hemiparesis following cerebral infarction affecting right dominant side (CMS/HCC V24, CMS/HCC V28) documented in this encounter Additional Health Concerns Infection Onset Date Last Indicated Resolved Time C. difficile Rule-Out 02/16/2025 02/16/20252024 11:14 AM EDT documented as of this encounter Care Teams Construction Field Engineer Relationship Specialty Start Date End Date Regino Brooke MD [address] [place] [address] PCP - General Family Medicine 07/12/24 documented as of this encounter
--- OUTSIDE RECORDS SUMMARY | 2025-06-22 06:56 | XMS_ITS | Encounter Summary ---
Author Organization [employer] Address [address] [place] [address] Care Team Providers Care Environmental Lead Name Role Phone Regino Brooke MD Primary Care Provider [phone] Encounter Details Date Type Department Care Team (Late st Contact Info) Description 09/28/2024 Lab Requisition [facility] - Main Lab [address] [place] [address] Regino Brooke MD [address] [place] [address] Essential (primary) hypertension Social History Tobacco Use [...] Diagnosis Comments CBC WITH AUTO DIFFERENTIAL Routine 09/28/2024 9:46 AM EST Essential (primary) hypertension CBC AND DIFFERENTIAL Routine 09/28/2024 9:46 AM EST Essential (primary) hypertension BASIC METABOLIC PANEL Routine 09/28/2024 9:46 AM EST Essential (primary) hypertension documented in this encounter Results * (ABNORMAL) CBC auto differential (09/28/2024 9:46 AM EST) WBC 3.5(L) 4.8 - 10.8 K/[facility] LAB HEMETOLOGY METHOD 09/28/2024 12:03 PM EST [facility] LAB RBC 4.50 4.50 - 5.50 M/[facility] LAB HEMETOLOGY METHOD 09/28/2024 12:03 PM [facility] LAB Hemoglobin 14.0 13.5 - 17.5 g/dL LAB HEMETOLOGY METHOD 09/28/2024 12:03 PM [facility] LAB Hematocrit 42.9 42.0 - 54.0 % LAB HEMETOLOGY METHOD 09/28/2024 12:03 PM [facility] LAB MCV 96.2 79.0 - 98.0 FL LAB HEMETOLOGY METHOD 09/28/2024 12:03 PM [facility] LAB MCH 31.4 27.0 - 32.0 pcg LAB HEMETOLOGY METHOD 09/28/2024 12:03 PM [facility] LAB MCHC 32.6 32.0 - 37.0 g/dL LAB HEMETOLOGY METHOD 09/28/2024 12:03 PM [facility] LAB RDW 14.5 11.0 - 15.0 % LAB HEMETOLOGY METHOD 09/28/2024 12:03 PM [facility] LAB Platelets 170 130 - 400 K/mcL LAB HEMETOLOGY METHOD 09/28/2024 12:03 PM [facility] LAB MPV 9.4 7.0 - 11.0 FL LAB HEMETOLOGY METHOD 09/28/2024 12:03 PM [facility] LAB NRBC 0.0 <1.0 % LAB HEMETOLOGY METHOD 09/28/2024 12:03 PM [facility] LAB NRBC Absolute 0.00 <0.10 K/mcL LAB HEMETOLOGY METHOD 09/28/2024 12:03 PM [facility] LAB Neutrophils Relative 37.5 % LAB HEMETOLOGY METHOD 09/28/2024 12:03 PM [facility] LAB Lymphocytes Relative 43.6 % LAB HEMETOLOGY METHOD 09/28/2024 12:03 PM [facility] LAB Monocytes Relative 12.3 % LAB HEMETOLOGY METHOD 09/28/2024 12:03 PM [facility] LAB Eosinophils Relative 5.7 % LAB HEMETOLOGY METHOD 09/28/2024 12:03 PM [facility] LAB Basophils Relative 0.6 % LAB HEMETOLOGY METHOD 09/28/2024 12:03 PM [facility] LAB Immature Granulocytes Relative 0.3 % LAB HEMETOLOGY METHOD 09/28/2024 12:03 PM [facility] LAB Neutrophils Absolute 1.32(L) 1.50 - 7.00 K/mcL LAB HEMETOLOGY METHOD 09/28/2024 12:03 PM [facility] LAB Lymphocytes Absolute 1.53 1.00 - 5.00 K/mcL LAB HEMETOLOGY METHOD 09/28/2024 12:03 PM [facility] LAB Monocytes Absolute 0.43 0.20 - 1.00 K/mcL LAB HEMETOLOGY METHOD 09/28/2024 12:03 PM [facility] LAB Eosinophils Absolute 0.20 0.00 - 0.50 K/mcL LAB HEMETOLOGY METHOD 09/28/2024 12:03 PM [facility] LAB Basophils Absolute 0.02 0.00 - 0.20 K/mcL LAB HEMETOLOGY METHOD 09/28/2024 12:03 PM [facility] LAB Immature Granulocytes Absolute 0.01 0.00 - 0.03 K/mcL LAB HEMETOLOGY METHOD 09/28/2024 12:03 PM [facility] LAB Blood Venous blood specimen / Unknown Venipuncture / Unknown 09/28/2024 9:46 AM EST 09/28/2024 11:24 AM EST us Regino Brooke MD LAB BLOOD ORDERABLES Final R esult [facility] LAB [address] [place] [address], * (ABNORMAL) Basic metabolic panel (09/28/2024 9:46 AM EST) Sodium 142 133 - 145 mmol/L LAB CHEMISTRY METHOD 09/28/2024 3:56 PM [facility] LAB Potassium 3.7 3.5 - 5.5 mmol/L LAB CHEMISTRY METHOD 09/28/2024 3:56 PM [facility] LAB Chloride 109 96 - 110 mmol/L LAB CHEMISTRY METHOD 09/28/2024 3:56 PM [facility] LAB CO2 24 21 - 32 mmol/L LAB CHEMISTRY METHOD 09/28/2024 3:56 PM [facility] LAB Anion Gap 9 3 - 11 LAB CHEMISTRY METHOD 09/28/2024 3:56 PM [facility] LAB Glucose 101(H) 70 - 100 mg/dL LAB CHEMISTRY METHOD 09/28/2024 3:56 PM [facility] LAB BUN 11 5 - 25 mg/dL LAB CHEMISTRY METHOD 09/28/2024 3:56 PM [facility] LAB Creatinine 1.49(H) 0.70 - 1.30 mg/dL LAB CHEMISTRY METHOD 09/28/2024 3:56 PM [facility] LAB eGFR 48(L) >=60 mL/min/1. 73m2 LAB CHEMISTRY METHOD 09/28/2024 3:56 PM [facility] LAB Comment:Calculation based on the Chronic Kidney Disease Epidemiology Collaboration (CKD-EPI) equation refit without adjustment for race. BUN/Creatinine Ratio 7.4 LAB CHEMISTRY METHOD 09/28/2024 3:56 PM [facility] LAB Calcium 8.4(L) 8.5 - 10.5 mg/dL LAB CHEMISTRY METHOD 09/28/2024 3:56 PM [facility] LAB Blood Venous blood specimen / Unknown Venipuncture / Unknown 09/28/2024 9:46 AM EST 09/28/2024 11:24 AM EST us Regino Brooke MD LAB BLOOD ORDERABLES Final R esult [facility] ([facility]) [facility] LAB [address] [place] [address], documented in this encounter Visit Diagnoses Diagnosis Essential (primary) hypertension Unspecified essential hypertension documented in this encounter Additional Health Concerns Infection Onset Date Last Indicated Resolved Time C. difficile Rule-Out 02/16/2025 02/16/20252024 11:14 AM EDT documented as of this encounter Care Teams Environmental Lead Relationship Specialty Start Date End Date Regino Brooke MD [address] [place] [address] PCP - General Family Medicine 07/12/24 documented as of this encounter
--- OUTSIDE RECORDS SUMMARY | 2025-06-22 06:56 | XMS_ITS | Encounter Summary ---
Author Organization [employer] Address [address] [place] [address] Care Team Providers Care Web Development Instructor Name Role Phone Regino Brooke MD Primary Care Provider [phone] Encounter Details Date Type Department Care Team (Late st Contact Info) Description 02/22/2025 Lab Requisition [facility] - Main Lab [address] [facility] [place] [address] Regino Brooke MD [address] [place] [address] Hypotension, unspecified Social History Tobacco Use Types Packs/Day [...] Date/Time Associated Diagnosis Comments COMPLETE BLOOD COUNT STAT 02/22/2025 11:43 AM EDT Hypotension, unspecified BASIC METABOLIC PANEL STAT 02/22/2025 11:43 AM EDT Hypotension, unspecified documented in this encounter Results * (ABNORMAL) Basic metabolic panel (02/22/2025 11:43 AM EDT) Sodium 135 133 - 145 mmol/L LAB CHEMISTRY METHOD 02/22/2025 12:55 PM EDT [facility] LAB Potassium 4.0 3.5 - 5.5 mmol/L LAB CHEMISTRY METHOD 02/22/2025 12:55 PM EDT [facility] LAB Comment:Hemolysis present Chloride 107 96 - 110 mmol/L LAB CHEMISTRY METHOD 02/22/2025 12:55 PM T [facility] LAB CO2 22 21 - 32 mmol/L LAB CHEMISTRY METHOD 02/22/2025 12:55 PM [facility] LAB Anion Gap 6 3 - 11 LAB CHEMISTRY METHOD 02/22/2025 12:55 PM [facility] LAB Glucose 91 70 - 100 mg/dL LAB CHEMISTRY METHOD 02/22/2025 12:55 PM [facility] LAB BUN 12 5 - 25 mg/dL LAB CHEMISTRY METHOD 02/22/2025 12:55 PM [facility] LAB Creatinine 1.61(H) 0.70 - 1.30 mg/dL LAB CHEMISTRY METHOD 02/22/2025 12:55 PM [facility] LAB eGFR 44(L) >=60 mL/min/1. 73m2 LAB CHEMISTRY METHOD 02/22/2025 12:55 PM [facility] LAB Comment:Calculation based on the Chronic Kidney Disease Epidemiology Collaboration (CKD-EPI) equation refit without adjustment for race. BUN/Creatinine Ratio 7.5 LAB CHEMISTRY METHOD 02/22/2025 12:55 PM [facility] LAB Calcium 8.9 8.5 - 10.5 mg/dL LAB CHEMISTRY METHOD 02/22/2025 12:55 PM [facility] LAB Blood Venous blood specimen / Unknown Venipuncture / Unknown 02/22/2025 11:43 AM EDT 02/22/2025 12:17 PM EDT us Regino Brooke MD LAB BLOOD ORDERABLES Final R esult [facility] LAB [address] [place] [address], * (ABNORMAL) Complete blood count (02/22/2025 11:43 AM EDT) WBC 4.7(L) 4.8 - 10.8 K/mcL LAB HEMETOLOGY METHOD 02/22/2025 12:26 PM [facility] LAB RBC 4.80 4.50 - 5.50 M/mcL LAB HEMETOLOGY METHOD 02/22/2025 12:26 PM [facility] LAB Hemoglobin 14.7 13.5 - 17.5 g/dL LAB HEMETOLOGY METHOD 02/22/2025 12:26 PM [facility] LAB Hematocrit 45.8 42.0 - 54.0 % LAB HEMETOLOGY METHOD 02/22/2025 12:26 PM [facility] LAB MCV 96.4 79.0 - 98.0 FL LAB HEMETOLOGY METHOD 02/22/2025 12:26 PM [facility] LAB MCH 30.9 27.0 - 32.0 pcg LAB HEMETOLOGY METHOD 02/22/2025 12:26 PM [facility] LAB MCHC 32.1 32.0 - 37.0 g/dL LAB HEMETOLOGY METHOD 02/22/2025 12:26 PM [facility] LAB RDW 14.9 11.0 - 15.0 % LAB HEMETOLOGY METHOD 02/22/2025 12:26 PM [facility] LAB Platelets 190 130 - 400 K/mcL LAB HEMETOLOGY METHOD 02/22/2025 12:26 PM [facility] LAB MPV 9.5 7.0 - 11.0 FL LAB HEMETOLOGY METHOD 02/22/2025 12:26 PM [facility] LAB NRBC 0.0 <1.0 % LAB HEMETOLOGY METHOD 02/22/2025 12:26 PM [facility] LAB NRBC Absolute 0.00 <0.10 K/mcL LAB HEMETOLOGY METHOD 02/22/2025 12:26 PM [facility] LAB Blood Venous blood specimen / Unknown Venipuncture / Unknown 02/22/2025 11:43 AM EDT 02/22/2025 12:17 PM EDT us Regino Brooke MD LAB BLOOD ORDERABLES Final R esult [facility] LAB [address] [place] [address], documented in this encounter Visit Diagnoses Diagnosis Hypotension, unspecified documented in this encounter Care Teams Web Development Instructor Relationship Specialty Start Date End Date Regino Brooke MD [address] [place] [address] PCP - General Family Medicine 07/12/24 documented as of this encounter
--- OUTSIDE RECORDS SUMMARY | 2025-06-22 06:56 | XMS_ITS | Encounter Summary ---
Author Organization [employer] Address [address] [place] [address] Care Team Providers Care Interpreter Translator Name Role Phone Regino Brooke MD Primary Care Provider [phone] Encounter Details Date Type Department Care Team (Late st Contact Info) Description 01/19/2025 Lab Requisition [facility] - Main Lab [address] [facility] [place] [address] Rgeino Brooke MD [address] [place] [address] Hemiplegia and hemiparesis following cerebral [...] Procedure Name Priority Date/Time Associated Diagnosis Comments URINALYSIS WITH REFLEX MICROSCOPIC Routine 01/19/2025 12:00 AM EDT Hemiplegia and hemiparesis following cerebral infarction affecting right dominant side (CMS/HCC V24, CMS/HCC V28) LEMUS URINE CULTURE TUBE Routine 01/19/2025 12:00 AM EDT Hemiplegia and hemiparesis following cerebral infarction affecting right dominant side (CMS/HCC V24, CMS/HCC V28) DRUG ABUSE SCREEN EXPANDED WITH REFLEX CONFIRMATION, URINE Routine 01/19/2025 12:00 AM EDT Hemiplegia and hemiparesis following cerebral infarction affecting right dominant side (CMS/HCC V24, CMS/HCC V28) URINALYSIS WITH REFLEX MICROSCOPIC Routine 01/19/2025 12:00 AM EDT Hemiplegia and hemiparesis following cerebral infarction affecting right dominant side ([facility]/HCC V24, CMS/HCC V28) documented in this encounter Results * Lemus urine culture tube (01/19/2025 12:00 AM EDT) Pathologist [facility] Extra Tube Hold for add-ons. 01/19/2025 2:01 PM EDT [facility] Comment:Auto resulted. Urine Urine specimen obtained by clean catch procedure / Unknown 01/19/2025 01/19/2025 12:45 PM EDT us Regino Brooke MD LAB URINE ORDERABLES Final R esult [facility] LAB [address] [place] [address], [place] [phone] * (ABNORMAL) Urinalysis with reflex microscopic (01/19/2025 12:00 AM EDT) [facility] Specific [place] Urine 1.014 1.003 - 1.030 LAB URINALYSIS - AUTOMATED METHOD 01/19/2025 1:16 PM T [facility] pH, Urine 7.5 5.0 - 8.0 pH LAB URINALYSIS - AUTOMATED METHOD 01/19/2025 1:[address] [facility] Leukocytes, Urine Large(A) Negative LAB URINALYSIS - AUTOMATED METHOD 01/19/2025 1:16 PM T [facility] Nitrite, Urine Positive(A) Negative LAB URINALYSIS - AUTOMATED METHOD 01/19/2025 1:[address] [facility] Protein, Urine 100(A) <=Trace mg/dL LAB URINALYSIS - AUTOMATED METHOD 01/19/2025 1:[address] [facility] Glucose, Urine Negative Negative mg/dL LAB URINALYSIS - AUTOMATED METHOD 01/19/2025 1:16 PM T [facility] Ketones, Urine Negative Negative mg/dL LAB URINALYSIS - AUTOMATED METHOD 01/19/2025 1:16 PM EDT [facility] Urobilinogen , Urine 0.2 0.2 - 1.0 mg/dL LAB URINALYSIS - AUTOMATED METHOD 01/19/2025 1:16 PM EDT [facility] Bilirubin, Urine Negative Negative LAB URINALYSIS - AUTOMATED METHOD 01/19/2025 1:16 PM EDT [facility] Blood, Urine Moderate(A) Negative LAB URINALYSIS - AUTOMATED METHOD 01/19/2025 1:16 PM EDT [facility] RBC, Urine 6.9(H) 0 - 4 /HPF LAB URINALYSIS - AUTOMATED METHOD 01/19/2025 1:16 PM EDT [facility] WBC, Urine 308.8(H) 0 - 4 /HPF LAB URINALYSIS - AUTOMATED METHOD 01/19/2025 1:16 PM T [facility] Squamous Epithelial, Urine 11 0 - 60 /LPF LAB URINALYSIS - AUTOMATED METHOD 01/19/2025 1:16 PM T [facility] Bacteria, Urine Many(A) Negative /HPF LAB URINALYSIS - AUTOMATED METHOD 01/19/2025 1:[address] [facility] Hyaline Casts, Urine 2.8 0 - 3 /LPF LAB URINALYSIS - AUTOMATED METHOD 01/19/2025 1:16 PM T [facility] Urine Urine specimen from urethra / Unknown 01/19/2025 01/19/2025 12:25 PM EDT us Regino Brooke MD LAB URINE ORDERABLES Final R esult [facility] [address] [place] [address], * Drug abuse screen expanded with reflex confirmation, urine (01/19/2025 12:00 AM EDT) Amphetamine Screen, Ur Negative Negative LAB CHEMISTRY METHOD 01/19/2025 1:[address] [facility] Comment:Certain OTC medicati ons containing ephedrine, phenylephrine, pseudoephedrine and phenylpropanolamine can cause false positive results. Barbiturate Screen, Ur Negative Negative LAB CHEMISTRY METHOD 01/19/2025 1:09 PM EDT [facility] Benzodiazepine Screen, Ur Negative Negative LAB CHEMISTRY METHOD 01/19/2025 1:[address] [facility] Cocaine Screen, Ur Negative Negative LAB CHEMISTRY METHOD 01/19/2025 1:[address] [facility] Opiate Screen, Ur Negative Negative LAB CHEMISTRY METHOD 01/19/2025 1:[address] [facility] Cannabinoid (THC) Screen, Ur Negative Negative LAB CHEMISTRY METHOD 01/19/2025 1:[address] [facility] Comment:Specimens from patie nts taking pantoprazole sodium (Protonix) have been shown to produce false positive results. Fentanyl, Ur Negative Negative LAB CHEMISTRY METHOD 01/19/2025 1:[address] [facility] Oxycodone Screen, Ur Negative Negative LAB CHEMISTRY METHOD 01/19/2025 1:[address] [facility] Urine Urine specimen from urethra / Unknown 01/19/2025 01/19/2025 12:25 PM EDT Narrative [facility] - 01/19/2025 1:09 PM EDT Assay cutoffs: Amphetamines 1000 ng/mL Barbiturates 200 ng/mL Benzodiazepines 200 ng/mL Cocaine 300 ng/mL Fentanyl 1 ng/mL Opiates 300 ng/mL Oxycodone 100 ng/mL THC 50 ng/mL Semi-quantitative assay for screening purposes only. Unconfirmed screening result should not be used for non-medical purposes. *POSITIVE RESULTS ARE AUTOMATICALLY SENT FOR ALTERNATE METHOD CONFIRMATION* Regino Brooke MD LAB URINE ORDERABLES Final R esult [facility] ([facility] LAB [address] [place] [address], documented in this encounter Visit Diagnoses Diagnosis Hemiplegia and hemiparesis following cerebral infarction affecting right dominant side (CMS/HCC V24, CMS/HCC V28) documented in this encounter Additional Health Concerns Infection Onset Date Last Indicated Resolved Time C. difficile Rule-Out 02/16/2025 02/16/20252024 11:14 AM EDT documented as of this encounter Care Teams Interpreter Translator Relationship Specialty Start Date End Date Regino Brooke MD [address] [place] [id number] PCP - General Family Medicine 07/12/24 documented as of this encounter
--- OUTSIDE RECORDS SUMMARY | 2025-06-22 06:56 | XMS_ITS | Encounter Summary ---
Author Organization [employer] [facility] Address [address] [place] [address] Care Team Providers Care Environmental Science Technician Name Role Phone Regino Brooke MD Primary Care Provider [phone] Encounter Details Date Type Department Care Team (Late st Contact Info) Description 10/29/2024 Lab Requisition [facility] - Main Lab [address] [facility] [place] [address] Regino Brooke MD [address] [place] [id number] Other [facility] (current) drug therapy Social History Tobacco Use [...] as of this encounter Visit Diagnoses Diagnosis Other long term acute care registered nurse (current) drug therapy documented in this encounter Additional Health Concerns Infection Onset Date Last Indicated Resolved Time C. difficile Rule-Out 02/16/2025 02/16/20252024 11:14 AM EDT documented as of this encounter Care Teams Environmental Science Technician Relationship Specialty Start Date End Date Regino Brooke MD [address] [place] [id number] PCP - General Family Medicine 07/12/24 documented as of this encounter
--- OUTSIDE RECORDS SUMMARY | 2025-06-22 06:56 | XMS_ITS | Encounter Summary ---
Author Organization [employer] Address [address] [place] [address] Care Team Providers Care Fluid Power Mechanic Name Role Phone Regino Brooke MD Primary Care Provider [phone] Encounter Details Date Type Department Care Team (Late st Contact Info) Description 03/19/2025 Lab Requisition [facility] - Main Lab [address] [place] [address] Regino Brooke MD [address] [place] [address] Chronic obstructive pulmonary disease, unspecified (CMS/HCC V24, CMS/HCC V28); Chronic kidney disease, unspecified Social History Tobacco [...] Associated Diagnosis Comments COMPLETE BLOOD COUNT Routine 03/19/2025 6:59 AM EDT Chronic obstructive pulmonary disease, unspecified (CMS/HCC V24, CMS/HCC V28) Chronic kidney disease, unspecified COMPREHENSIVE METABOLIC PANEL Routine 03/19/2025 6:59 AM EDT Chronic obstructive pulmonary disease, unspecified (CMS/HCC V24, CMS/HCC V28) Chronic kidney disease, unspecified documented in this encounter Results * (ABNORMAL) Comprehensive metabolic panel (03/19/2025 6:59 AM EDT) Sodium 142 133 - 145 mmol/L LAB CHEMISTRY METHOD 03/19/2025 9:19 AM EDT [facility] ([facility]) [facility] Potassium 3.7 3.5 - 5.5 mmol/L LAB CHEMISTRY METHOD 03/19/2025 9:[address] [facility] Chloride 110 96 - 110 mmol/L LAB CHEMISTRY METHOD 03/19/2025 9:[address] [facility] CO2 27 21 - 32 mmol/L LAB CHEMISTRY METHOD 03/19/2025 9:[address] [facility] Anion Gap 5 3 - 11 LAB CHEMISTRY METHOD 03/19/2025 9:[address] [facility] Glucose 72 70 - 100 mg/dL LAB CHEMISTRY METHOD 03/19/2025 9:[address] [facility] BUN 8 5 - 25 mg/dL LAB CHEMISTRY METHOD 03/19/2025 9:[address] [facility] Creatinine 1.40(H) 0.70 - 1.30 mg/dL LAB CHEMISTRY METHOD 03/19/2025 9:[address] [facility] eGFR 52(L) >=60 mL/min/1. 73m2 LAB CHEMISTRY METHOD 03/19/2025 9:[address] [facility] Comment:Calculation based on the Chronic Kidney Disease Epidemiology Collaboration (CKD-EPI) equation refit without adjustment for race. BUN/Creatinine Ratio 5.7 LAB CHEMISTRY METHOD 03/19/2025 9:[address] [facility] Calcium 8.6 8.5 - 10.5 mg/dL LAB CHEMISTRY METHOD 03/19/2025 9:[address] [facility] AST (SGOT) 15 10 - 42 unit/L LAB CHEMISTRY METHOD 03/19/2025 9:[address] [facility] ALT (SGPT) <6(L) 10 - 60 unit/L LAB CHEMISTRY METHOD 03/19/2025 9:[address] [facility] Alkaline Phosphatase 97 42 - 121 unit/L LAB CHEMISTRY METHOD 03/19/2025 9:[address] [facility] Total Protein 6.5 6.0 - 8.0 g/dL LAB CHEMISTRY METHOD 03/19/2025 9:19 AM EDT [facility] Albumin 2.9(L) 3.2 - 5.0 g/dL LAB CHEMISTRY [facility] Total Bilirubin 0.9 0.0 - 1.4 mg/dL LAB CHEMISTRY METHOD 03/19/2025 9:19 AM EDT [facility] Blood Venous blood specimen / Unknown Venipuncture / Unknown 03/19/2025 6:59 AM EDT 03/19/2025 8:08 AM EDT Regino Brooke MD LAB BLOOD ORDERABLES Final R esult [facility] [address] [place] [address], * (ABNORMAL) Complete blood count (03/19/2025 6:59 AM EDT) WBC 3.3(L) 4.8 - 10.8 K/mcL LAB HEMETOLOGY METHOD 03/19/2025 8:[address] [facility] RBC 4.70 4.50 - 5.50 M/mcL LAB HEMETOLOGY METHOD 03/19/2025 8:[address] [facility] Hemoglobin 14.5 13.5 - 17.5 g/dL LAB HEMETOLOGY METHOD 03/19/2025 8:[address] [facility] Hematocrit 44.3 42.0 - 54.0 % LAB HEMETOLOGY METHOD 03/19/2025 8:[address] [facility] MCV 95.3 79.0 - 98.0 FL LAB HEMETOLOGY METHOD 03/19/2025 8:[address] [facility] MCH 31.2 27.0 - 32.0 pcg LAB HEMETOLOGY METHOD 03/19/2025 8:56 AM EDT [facility] MCHC 32.7 32.0 - 37.0 g/dL LAB HEMETOLOGY METHOD 03/19/2025 8:56 AM EDT [facility] RDW 15.1(H) 11.0 - 15.0 % LAB HEMETOLOGY METHOD 03/19/2025 8:56 AM EDT [facility] Platelets 210 130 - 400 K/mcL LAB HEMETOLOGY METHOD 03/19/2025 8:56 AM EDT [facility] MPV 9.1 7.0 - 11.0 FL LAB HEMETOLOGY METHOD 03/19/2025 8:56 AM EDT [facility] NRBC 0.0 <1.0 % LAB HEMETOLOGY METHOD 03/19/2025 8:56 AM EDT [facility] NRBC Absolute 0.00 <0.10 K/mcL LAB HEMETOLOGY METHOD 03/19/2025 8:56 AM EDT [facility] Blood Venous blood specimen / Unknown Venipuncture / Unknown 03/19/2025 6:59 AM EDT 03/19/2025 8:08 AM EDT us Regino Brooke MD LAB BLOOD ORDERABLES Final R esult [facility] [address] [place] [address], documented in this encounter Visit Diagnoses Diagnosis Chronic obstructive pulmonary disease, unspecified (CMS/HCC V24, CMS/HCC V28) Chronic kidney disease, unspecified documented in this encounter Care Teams Fluid Power Mechanic Relationship Specialty Start Date End Date Regino Brooke MD [address] [place] [address] PCP - General Family Medicine 07/12/24 documented as of this encounter
--- OUTSIDE RECORDS SUMMARY | 2025-06-22 06:56 | XMS_ITS | Encounter Summary ---
Author Organization [employer] Address [address] [place] [address] Care Team Providers Care Mark Up Designer Name Role Phone Regino Brooke MD Primary Care Provider [phone] Encounter Details Date Type Department Care Team (Late st Contact Info) Description 01/17/2025 Lab Requisition [facility] - Main Lab [address] [facility] [place] [address] Regino Brooke MD [address] [place] [address] Chronic obstructive pulmonary disease, unspecified (CMS/HCC V24, CMS/HCC V28); Hypertensive chronic kidney disease with stage 1 through stage 4 chronic kidney disease, or unspecified chronic kidney disease; Chronic kidney disease, stage 3 unspecified (CMS/HCC V24, CMS/HCC V28) Social History Tobacco [...] Associated Diagnosis Comments COMPLETE BLOOD COUNT Routine 01/17/2025 7:49 AM EDT Chronic obstructive pulmonary disease, unspecified (CMS/HCC V24, CMS/HCC V28) Hypertensive chronic kidney disease with stage 1 through stage 4 chronic kidney disease, or unspecified chronic kidney disease Chronic kidney disease, stage 3 unspecified (CMS/HCC V24, CMS/HCC V28) BASIC METABOLIC PANEL Routine 01/17/2025 7:49 AM EDT Chronic obstructive pulmonary disease, unspecified (CMS/HCC V24, CMS/HCC V28) Hypertensive chronic kidney disease with stage 1 through stage 4 chronic kidney disease, or unspecified chronic kidney disease Chronic kidney disease, stage 3 unspecified (CMS/HCC V24, [facility] V28) documented in this encounter Results * (ABNORMAL) Basic metabolic panel (01/17/2025 7:49 AM EDT) Sodium 142 133 - 145 mmol/L LAB CHEMISTRY METHOD 01/17/2025 10:[address] [facility] Potassium 3.8 3.5 - 5.5 mmol/L LAB CHEMISTRY METHOD 01/17/2025 10:[address] [facility] Chloride 110 96 - 110 mmol/L LAB CHEMISTRY METHOD 01/17/2025 10:[address] [facility] CO2 27 21 - 32 mmol/L LAB CHEMISTRY METHOD 01/17/2025 10:[address] [facility] Anion Gap 5 3 - 11 LAB CHEMISTRY METHOD 01/17/2025 10:[address] [facility] Glucose 82 70 - 100 mg/dL LAB CHEMISTRY METHOD 01/17/2025 10:[address] [facility] BUN 10 5 - 25 mg/dL LAB CHEMISTRY METHOD 01/17/2025 10:[address] [facility] Creatinine 1.34(H) 0.70 - 1.30 mg/dL LAB CHEMISTRY METHOD 01/17/2025 10:[address] [facility] eGFR 55(L) >=60 mL/min/1. 73m2 LAB CHEMISTRY METHOD 01/17/2025 10:[address] [facility] Comment:Calculation based on the Chronic Kidney Disease Epidemiology Collaboration (CKD-EPI) equation refit without adjustment for race. BUN/Creatinine Ratio 7.5 LAB CHEMISTRY METHOD 01/17/2025 10:[address] [facility] Calcium 8.3(L) 8.5 - 10.5 mg/dL LAB CHEMISTRY METHOD 01/17/2025 10:[address] [facility] Blood Venous blood specimen / Unknown Venipuncture / Unknown 01/17/2025 7:49 AM EDT 01/17/2025 8:54 AM EDT us Regino Brooke MD LAB BLOOD ORDERABLES Final R esult [facility] [address] [place] [address], * (ABNORMAL) Complete blood count (01/17/2025 7:49 AM EDT) [facility] WBC 4.4(L) 4.8 - 10.8 K/mcL LAB HEMETOLOGY METHOD [facility]/17[facility] RBC 4.10(L) 4.50 - 5.50 M/mcL LAB HEMETOLOGY METHOD 01/17/2025 9:[address] [facility] Hemoglobin 12.9(L) 13.5 - 17.5 g/dL LAB HEMETOLOGY METHOD 01/17/2025 9:[address] [facility] Hematocrit 40.0(L) 42.0 - 54.0 % LAB HEMETOLOGY METHOD 01/17/2025 9:[address] [facility] MCV 96.6 79.0 - 98.0 FL LAB HEMETOLOGY METHOD 01/17/2025 9:[address] [facility] MCH 31.2 27.0 - 32.0 pcg LAB HEMETOLOGY METHOD 01/17/2025 9:[address] [facility] MCHC 32.3 32.0 - 37.0 g/dL LAB HEMETOLOGY METHOD 01/17/2025 9:[address] [facility] RDW 14.6 11.0 - 15.0 % LAB HEMETOLOGY METHOD 01/17/2025 9:[address] [facility] Platelets 221 130 - 400 K/mcL LAB HEMETOLOGY METHOD 01/17/2025 9:55 AM EDT [facility] MPV 9.5 7.0 - 11.0 FL LAB HEMETOLOGY METHOD 01/17/2025 9:55 AM EDT [facility] NRBC 0.0 <1.0 % LAB HEMETOLOGY METHOD 01/17/2025 9:55 AM EDT [facility] NRBC Absolute 0.00 <0.10 K/mcL LAB HEMETOLOGY METHOD 01/17/2025 9:55 AM EDT [facility] Blood Venous blood specimen / Unknown Venipuncture / Unknown 01/17/2025 7:49 AM EDT 01/17/2025 8:54 AM EDT us Regino Brooke MD LAB BLOOD ORDERABLES Final R esult [facility] [address] [place] [address], documented in this encounter Visit Diagnoses Diagnosis Chronic obstructive pulmonary disease, unspecified (CMS/HCC V24, CMS/HCC V28) Hypertensive chronic kidney disease with stage 1 through stage 4 chronic kidney disease, or unspecified chronic kidney disease Chronic kidney disease, stage 3 unspecified (CMS/HCC V24, [facility]/HCC V28) documented in this encounter Additional Health Concerns Infection Onset Date Last Indicated Resolved Time C. difficile Rule-Out 02/16/2025 02/16/20252024 11:14 AM EDT documented as of this encounter Care Teams Mark Up Designer Relationship Specialty Start Date End Date Regino Brooke MD [address] [place] [address] PCP - General Family Medicine 07/12/24 documented as of this encounter
--- OUTSIDE RECORDS SUMMARY | 2025-06-22 06:56 | XMS_ITS | Encounter Summary ---
Author Organization [employer] Address [address] [place] [address] Care Team Providers Care Sheriffs Name Role Phone Regino Brooke MD Primary Care Provider [phone] Encounter Details Date Type Department Care Team (Late st Contact Info) Description 09/20/2024 Lab Requisition [facility] - Main Lab [address] [facility] [place] [address] Regino Brooke MD [address] [place] [address] Essential (primary) hypertension Social History [...] Associated Diagnosis Comments COMPLETE BLOOD COUNT Routine 09/20/2024 5:54 AM EST Essential (primary) hypertension BASIC METABOLIC PANEL Routine 09/20/2024 5:54 AM EST Essential (primary) hypertension documented in this encounter Results * (ABNORMAL) Basic metabolic panel (09/20/2024 5:54 AM EST) Sodium 143 133 - 145 mmol/L LAB CHEMISTRY METHOD 09/20/2024 10:46 AM EST [facility] Potassium 3.7 3.5 - 5.5 mmol/L LAB CHEMISTRY METHOD 09/20/2024 10:46 AM EST [facility] Chloride 110 96 - 110 mmol/L LAB CHEMISTRY METHOD 09/20/2024 10:46 AM EST [facility] CO2 24 21 - 32 mmol/L LAB CHEMISTRY METHOD 09/20/2024 10:46 AM [facility] Anion Gap 9 3 - 11 LAB CHEMISTRY METHOD 09/20/2024 10:46 AM [facility] Glucose 80 70 - 100 mg/dL LAB CHEMISTRY METHOD 09/20/2024 10:46 AM [facility] BUN 9 5 - 25 mg/dL LAB CHEMISTRY METHOD 09/20/2024 10:46 AM [facility] Creatinine 1.31(H) 0.70 - 1.30 mg/dL LAB CHEMISTRY METHOD 09/20/2024 10:46 AM [facility] eGFR 56(L) >=60 mL/min/1. 73m2 LAB CHEMISTRY METHOD 09/20/2024 10:46 AM [facility] Comment:Calculation based on the Chronic Kidney Disease Epidemiology Collaboration (CKD-EPI) equation refit without adjustment for race. BUN/Creatinine Ratio 6.9 LAB CHEMISTRY METHOD 09/20/2024 10:46 AM [facility] Calcium 8.3(L) 8.5 - 10.5 mg/dL LAB CHEMISTRY METHOD 09/20/2024 10:46 AM [facility] Blood Venous blood specimen / Unknown Venipuncture / Unknown 09/20/2024 5:54 AM EST 09/20/2024 9:20 AM EST us Regino Brooke MD LAB BLOOD ORDERABLES Final R esult [facility] [address] [place] [address], * (ABNORMAL) Complete blood count (09/20/2024 5:54 AM EST) WBC 3.8(L) 4.8 - 10.8 K/mcL LAB HEMETOLOGY METHOD 09/20/2024 9:57 AM [facility] RBC 4.30(L) 4.50 - 5.50 M/mcL LAB HEMETOLOGY METHOD 09/20/2024 9:57 AM [facility] Hemoglobin 13.3(L) 13.5 - 17.5 g/dL LAB HEMETOLOGY METHOD 09/20/2024 9:57 AM [facility] Hematocrit 40.4(L) 42.0 - 54.0 % LAB HEMETOLOGY METHOD 09/20/2024 9:57 AM [facility] MCV 95.1 79.0 - 98.0 FL LAB HEMETOLOGY METHOD 09/20/2024 9:57 AM [facility] MCH 31.3 27.0 - 32.0 pcg LAB HEMETOLOGY METHOD 09/20/2024 9:57 AM [facility] MCHC 32.9 32.0 - 37.0 g/dL LAB HEMETOLOGY METHOD 09/20/2024 9:57 AM [facility] RDW 14.3 11.0 - 15.0 % LAB HEMETOLOGY METHOD 09/20/2024 9:57 AM [facility] Platelets 176 130 - 400 K/mcL LAB HEMETOLOGY METHOD 09/20/2024 9:57 AM [facility] MPV 9.1 7.0 - 11.0 FL LAB HEMETOLOGY METHOD 09/20/2024 9:57 AM [facility] NRBC 0.0 <1.0 % LAB HEMETOLOGY METHOD 09/20/2024 9:57 AM [facility] NRBC Absolute 0.00 <0.10 K/mcL LAB HEMETOLOGY METHOD 09/20/2024 9:57 AM [facility] Blood Venous blood specimen / Unknown Venipuncture / Unknown 09/20/2024 5:54 AM EST 09/20/2024 9:20 AM EST us Regino Brooke MD LAB BLOOD ORDERABLES Final R esult [facility] [address] [place] [address], documented in this encounter Visit Diagnoses Diagnosis Essential (primary) hypertension Unspecified essential hypertension documented in this encounter Additional Health Concerns Infection Onset Date Last Indicated Resolved Time C. difficile Rule-Out 02/16/2025 02/16/20252024 11:14 AM EDT documented as of this encounter Care Teams Sheriffs Relationship Specialty Start Date End Date Regino Brooke MD [address] [place] [address] PCP - General Family Medicine 07/12/24 documented as of this encounter
--- OUTSIDE RECORDS SUMMARY | 2025-06-22 06:56 | XMS_ITS | Encounter Summary ---
Author Organization [employer] Address [address] [place] [address] Care Team Providers Care Trauma Doctor Name Role Phone Regino Brooke MD Primary Care Provider [phone] Encounter Details Date Type Department Care Team (Late st Contact Info) Description 10/30/[address] [facility] - Main Lab [address] [facility] [place] [address] Regino Brooke MD [address] [place] [address] Other fpc (current) drug therapy Social History Tobacco Use [...] Procedure Name Priority Date/Time Associated Diagnosis Comments FENTANYL AND METABOLITE Routine 10/30/2024 12:00 PM EDT Other continuous churn buttermaker (current) drug therapy DRUG ABUSE SCREEN, SERUM Routine 10/30/2024 12:00 PM EDT Other fpc (current) drug therapy documented in this encounter Results * Fentanyl and metabolite (10/30/2024 12:00 PM EDT) Fentanyl None Detected ng/mL 11/06/2024 7:05 PM EDT [facility] Comment: Reporting Limit: 0.20 ng/mL Synonym(s): Duragesic(R); Sublimaze(R) Immediately following a single 2 mcg/kg I.V. dose: Up to 11 ng/mL, declining to 1 ng/mL after one hour. Following the application of a 100 mcg/hour transdermal patch, serum levels (after an initial lag time of approximately six hours) of 0.8-2.6 ng/mL were maintained for more than 24 hours after application. Peak plasma levels following a single oral transmucosal dose (Fentanyl Oralet) of 15 mcg/kg to children: 2-4 ng/mL at 20 minutes. Analysis by High Performance Liquid Chromatography/ Tandem Mass Spectrometry (LC-MS/MS) Norfentanyl None Detected ng/mL 11/06/2024 7:05 PM EDT [facility] Comment: Reporting Limit: 0.40 ng/mL Synonym(s): Fentanyl Metabolite Therapeutic range is not established. Analysis by High Performance Liquid Chromatography/ Tandem Mass Spectrometry (LC-MS/MS) This test was developed and its performance characteristics determined by [facility]. It has not been cleared or approved by the [place] Food and Drug Administration. Digital data review may have taken place remotely by qualified [facility] staff utilizing a secure VPN connection for some or all of the reported results. This is in accordance with and follows CLIA regulations. Testing performed at [facility] [address] [place] [id number] CLIA [id number] Blood Venous blood specimen / Unknown 10/30/2024 12:00 PM EDT 10/30/2024 6:47 PM EDT us Regino Brooke MD LAB BLOOD ORDERABLES Final R esult [facility] [address] [place] [address] * Drug abuse screen, serum (10/30/2024 12:00 PM EDT) Amphetamine, Serum, Qualitative Negative 11/02/2024 10:31 AM EDT [facility] Barbiturate, Serum, Qualitative Negative 11/02/2024 10:31 AM EDT [facility] Benzodiazepine, Serum, Qualitative Negative 11/02/2024 10:31 AM EDT [facility] Cocaine, Serum, Qualitative Negative 11/02/2024 10:31 AM EDT [facility] Methadone, Serum, Qualitative Negative 11/02/2024 10:31 AM EDT [facility] Opiate, Serum, Qualitative Negative 11/02/2024 10:31 AM EDT [facility] Phencyclidine, Serum, Qualitative Negative 11/02/2024 10:31 AM EDT [facility] Propoxyphene, Serum, Qualitative Negative 11/02/2024 10:31 AM EDT [facility] THC, Serum, Qualitative Negative 11/02/2024 10:31 AM EDT [facility] Alcohol (Ethanol) Level Negative 11/02/2024 10:31 AM EDT [facility] Comment: Screen Decision Limits [...] developed and the performance characteristics determined by [facility]. This confirmation testing has not been cleared or approved by the FDA. The laboratory is regulated under CLIA as qualified to perform high-complexity testing. This test is used for patient testing purposes. It should not be regarded as investigational or for research. Test performed at [facility], [address], [place], [place] [id number] Adriana Flor MD, PhD - Infectious Disease Physician Blood Venous blood specimen / Unknown 10/30/2024 12:00 PM EDT 10/30/2024 6:47 PM EDT us Regino Brooke MD LAB BLOOD ORDERABLES Final R esult [facility] [address] [place], [place] [id number] documented in this encounter Visit Diagnoses Diagnosis Other continuous churn buttermaker (current) drug therapy documented in this encounter Additional Health Concerns Infection Onset Date Last Indicated Resolved Time C. difficile Rule-Out 02/16/2025 02/16/20252024 11:14 AM EDT documented as of this encounter Care Teams Trauma Doctor Relationship Specialty Start Date End Date Regino Brooke MD [address] [place] [address] PCP - General Family Medicine 07/12/24 documented as of this encounter
--- OUTSIDE RECORDS SUMMARY | 2025-06-22 06:56 | XMS_ITS | Encounter Summary ---
Author Organization [employer] Address [address] [place] [address] Care Team Providers Care Steel Construction Worker Name Role Phone Regino Brooke MD Primary Care Provider [phone] Encounter Details Date Type Department Care Team (Late st Contact Info) Description 03/19/2025 Lab Requisition [facility] - Main Lab [address] [place] [address] Regino Brooke MD [address] [place] [address] Urinary tract infection, site not specified Social History Tobacco Use Types Packs/Day Years [...] Diagnosis Comments URINALYSIS WITH REFLEX MICROSCOPIC Routine 03/18/2025 1:45 PM EDT Urinary tract infection, site not specified URINALYSIS WITH REFLEX MICROSCOPIC Routine 03/18/2025 1:45 PM EDT Urinary tract infection, site not specified CULTURE URINE Routine 03/18/2025 1:45 PM EDT Urinary tract infection, site not specified documented in this encounter Results * (ABNORMAL) Urinalysis with reflex microscopic (03/18/2025 1:45 PM EDT) Specific [place] Urine 1.012 1.003 - 1.030 LAB URINALYSIS - AUTOMATED METHOD 03/19/2025 11:33 AM EDT [facility] pH, Urine 8.0 5.0 - 8.0 pH LAB URINALYSIS - AUTOMATED METHOD 03/19/2025 11:33 AM [facility] Leukocytes, Urine Large(A) Negative LAB URINALYSIS - AUTOMATED METHOD 03/19/2025 11:33 AM [facility] Nitrite, Urine Positive(A) Negative LAB URINALYSIS - AUTOMATED METHOD 03/19/2025 11:33 AM [facility] Protein, Urine 100(A) <=Trace mg/dL LAB URINALYSIS - AUTOMATED METHOD 03/19/2025 11:33 AM [facility] Glucose, Urine Negative Negative mg/dL LAB URINALYSIS - AUTOMATED METHOD 03/19/2025 11:33 AM [facility] Ketones, Urine Negative Negative mg/dL LAB URINALYSIS - AUTOMATED METHOD 03/19/2025 11:33 AM [facility] Urobilinogen , Urine 0.2 0.2 - 1.0 mg/dL LAB URINALYSIS - AUTOMATED METHOD 03/19/2025 11:33 AM [facility] Bilirubin, Urine Negative Negative LAB URINALYSIS - AUTOMATED METHOD 03/19/2025 11:33 AM [facility] Blood, Urine Large(A) Negative LAB URINALYSIS - AUTOMATED METHOD 03/19/2025 11:33 AM [facility] RBC, Urine 10(H) 0 - 4 /HPF LAB URINALYSIS - AUTOMATED METHOD 03/19/2025 11:33 AM [facility] WBC, Urine 277.0(H) 0 - 4 /HPF LAB URINALYSIS - AUTOMATED METHOD 03/19/2025 11:33 AM [facility] Squamous Epithelial, Urine 18 0 - 60 /LPF LAB URINALYSIS - AUTOMATED METHOD 03/19/2025 11:33 AM [facility] Crystals, Urine MOD TRIPLE PHOS /LPF LAB URINALYSIS - AUTOMATED METHOD 03/19/2025 11:33 AM EDT [facility] Bacteria, Urine Many(A) Negative /HPF LAB URINALYSIS - AUTOMATED METHOD 03/19/2025 11:33 AM EDT [facility] Hyaline Casts, Urine 3.0 0 - 3 /LPF LAB URINALYSIS - AUTOMATED METHOD 03/19/2025 11:33 AM EDT [facility] Urine Urine specimen obtained by clean catch procedure / Unknown Non-blood Collection / Unknown 03/18/2025 1:45 PM EDT 03/19/2025 8:32 AM EDT Regino Brooke MD LAB URINE ORDERABLES Final R esult Performing Organization Address City/[facility]/ZIP Co de Phone Number [facility] [address] [place] [address], [place] [phone] * Culture urine (03/18/2025 1:45 PM EDT) Culture, Urine >100,000 CFU/mL Mixed bacterial morphotypes present suggestive of possible contamination during collection. Suggest appropriate recollection if clinically indicated. 03/20/2025 10:34 AM EDT [facility] Urine Urine specimen obtained by clean catch procedure / Unknown Non-blood Collection / Unknown 03/18/2025 1:45 PM EDT 03/19/2025 8:32 AM EDT Regino Brooke MD LAB MICROBIOLOGY - GENERAL O RDERABLES Final Result Performing Organization Address City/[facility]/ZIP Co de Phone Number [facility] [address] [place] [address], [place] [phone] documented in this encounter Visit Diagnoses Diagnosis Urinary tract infection, site not specified documented in this encounter Care Teams Steel Construction Worker Relationship Specialty Start Date End Date Regino Brooke MD [address] [place] [address] PCP - General Family Medicine 07/12/24 documented as of this encounter
--- OUTSIDE RECORDS SUMMARY | 2025-06-22 06:56 | XMS_ITS | Encounter Summary ---
Author Organization [employer] Address [address] [place] [address] Care Team Providers Care Ripening Room Attendant Name Role Phone Regino Brooke MD Primary Care Provider [phone] Encounter Details Date Type Department Care Team (Late st Contact Info) Description 04/20/2025 Lab Requisition [facility] - Main Lab [address] [facility] [place] [address] Regino Brooke MD [address] [place] [address] Encounter for blood-alcohol and blood-drug test Social History Tobacco Use Types Packs/Day Years [...] Name Priority Date/Time Associated Diagnosis Comments DRUG ABUSE SCREEN 8A PANEL, URINE Routine 04/20/2025 12:00 AM EDT Encounter for blood-alcohol and blood-drug test documented in this encounter Results * Drug abuse screen 8a panel, urine (04/20/2025 12:00 AM EDT) Amphetamine Screen, Ur Negative Negative LAB CHEMISTRY METHOD 04/20/2025 11:27 AM EDT [facility] Comment:Certain OTC medicati ons containing ephedrine, phenylephrine, pseudoephedrine and phenylpropanolamine can cause false positive results. Barbiturate Screen, Ur Negative Negative LAB CHEMISTRY METHOD 04/20/2025 11:27 AM EDT [facility] Benzodiazepine Screen, Ur Negative Negative LAB CHEMISTRY METHOD 04/20/2025 11:27 AM EDT [facility] Cocaine Screen, Ur Negative Negative LAB CHEMISTRY METHOD 04/20/2025 11:27 AM EDT [facility] Opiate Screen, Ur Negative Negative LAB CHEMISTRY METHOD 04/20/2025 11:27 AM [facility] Cannabinoid (THC) Screen, Ur Negative Negative LAB CHEMISTRY METHOD 04/20/2025 11:27 AM T [facility] Comment:Specimens from patie nts taking pantoprazole sodium (Protonix) have been shown to produce false positive results. Oxycodone Screen, Ur Negative Negative LAB CHEMISTRY METHOD 04/20/2025 11:27 AM [facility] Fentanyl, Ur Negative Negative LAB CHEMISTRY METHOD 04/20/2025 11:27 AM [facility] Urine Urine specimen obtained by clean catch procedure / Unknown 04/20/2025 04/20/2025 10:10 AM EDT Narrative [facility] - 04/20/2025 11:27 AM EDT Assay cutoffs: Amphetamines 1000 ng/mL Barbiturates 200 ng/mL Benzodiazepines 200 ng/mL Cocaine 300 ng/mL Fentanyl 1 ng/mL Opiates 300 ng/mL Oxycodone 100 ng/mL THC 50 ng/mL Semi-quantitative assay for screening purposes only. Unconfirmed screening result should not be used for non-medical purposes. *ALTERNATE METHOD CONFIRMATION DONE UPON REQUEST ONLY* us Regino Brooke MD LAB URINE ORDERABLES Final R esult [facility] [address] [place] [address], documented in this encounter Visit Diagnoses Diagnosis Encounter for blood-alcohol and blood-drug test documented in this encounter Care Teams Ripening Room Attendant Relationship Specialty Start Date End Date Regino Brooke MD [address] [place] [address] PCP - General Family Medicine 07/12/24 documented as of this encounter
--- OUTSIDE RECORDS SUMMARY | 2025-06-22 06:56 | XMS_ITS | Clinical Summary ---
Author Organization 299 [facility] Address [address] [place] [address] Phone Care Team Providers Care Engine Test Cell Technician Name Role Phone Regino Brooke MD Primary Care Provider Encounters Date Type Department Care Team Description 04/20/2025 Lab Requisition [facility] - Main Lab [address] [facility] [place] [address] Regino Brooke MD Encounter for blood-alcohol and blood-drug test from Last 3 Months Social History Tobacco Use Types Packs/Day Years Used Date Smoking Tobacco: Never Assessed Sex and Gender Information Value Date Recorded Sex Assigned at Not on file Legal Sex Male 8:35 PM EST Gender Identity Not on file Sexual Orientation Not on file Plan of Treatment Health Maintenance Due Date Last Done Comments DTaP,Tdap,and Td Vaccines (1 - Tdap) 1969 Pneumococcal Vaccine: 50+ Years (1 of 2 - PCV) 1967 Zoster Vaccines (1 of 2) 1998 RSV Immunization Adult Patients (1 - 1-dose 75+ series) 2023 Falls Risk Assessment 08/19/2023 Hepatitis C Screening 08/19/2023 Social Influencers of Health Screening 08/19/2023 Depression Screening 07/25/2024 COVID-19 Vaccine (1 - 2024-2 6 season) 2025 Influenza Vaccine (#1) 2025 Cholesterol Screening (Lipid Panel) 12/26/2029 12/26/2024, 07/17/2024 HIB Vaccines Aged Out No longer eligi ble based on patient's age to complete this topic HPV Vaccines Aged Out No longer eligi ble based on patient's age to complete this topic Hepatitis A Vaccines Aged Out No long er eligible based on patient's age to complete this topic Hepatitis B Vaccines Aged Out No long er eligible based on patient's age to complete this topic IPV Vaccines Aged Out No longer eligi ble based on patient's age to complete this topic MMR Vaccines Aged Out No longer eligi ble based on patient's age to complete this topic Meningococcal ACWY Vaccine Aged Out N o longer eligible based on patient's age to complete this topic Meningococcal B Vaccine Aged Out No l onger eligible based on patient's age to complete this topic RSV Immunization Patients Under 20 months Aged Out No longer eligible b ased on patient's age to complete this topic Varicella Vaccines Aged Out No longer eligible based on patient's age to complete this topic Procedures Procedure Name Priority Date/Time Associated Diagnosis Comments DRUG ABUSE SCREEN 8A PANEL, URINE Routine 04/20/2025 12:00 AM EDT Encounter for blood-alcohol and blood-drug test LIPID PANEL WITH REFLEX TO DIRECT LDL Routine 12/26/2024 5:22 AM EDT Anemia, unspecified from Last 3 Months or Most Recently Relevant to Health Maintenance Results * Drug abuse screen 8a panel, urine (04/20/2025 12:00 AM EDT) Amphetamine Screen, Ur Negative Negative LAB CHEMISTRY METHOD 04/20/2025 11:27 AM [facility] Comment:Certain OTC medicati ons containing ephedrine, phenylephrine, pseudoephedrine and phenylpropanolamine can cause false positive results. Barbiturate Screen, Ur Negative Negative LAB CHEMISTRY METHOD 04/20/2025 11:27 AM [facility] Benzodiazepine Screen, Ur Negative Negative LAB CHEMISTRY METHOD 04/20/2025 11:27 AM [facility] Cocaine Screen, Ur Negative Negative LAB CHEMISTRY METHOD 04/20/2025 11:27 AM [facility] Opiate Screen, Ur Negative Negative LAB CHEMISTRY METHOD 04/20/2025 11:27 AM [facility] Cannabinoid (THC) Screen, Ur Negative Negative LAB CHEMISTRY METHOD 04/20/2025 11:27 AM [facility] Comment:Specimens from patie nts taking pantoprazole sodium (Protonix) have been shown to produce false positive results. Oxycodone Screen, Ur Negative Negative LAB CHEMISTRY METHOD [facility]/20[facility]25 [facility] Fentanyl, Ur Negative Negative LAB CHEMISTRY METHOD 04/20/2025 11:27 AM [facility] Urine Urine specimen obtained by clean catch procedure / Unknown 04/20/2025 04/20/2025 10:10 AM EDT [facility] - 04/20/2025 11:27 AM EDT Assay cutoffs: Amphetamines 1000 ng/mL Barbiturates 200 ng/mL Benzodiazepines 200 ng/mL Cocaine 300 ng/mL Fentanyl 1 ng/mL Opiates 300 ng/mL Oxycodone 100 ng/mL THC 50 ng/mL Semi-quantitative assay for screening purposes only. Unconfirmed screening result should not be used for non-medical purposes. *ALTERNATE METHOD CONFIRMATION DONE UPON REQUEST ONLY* Regino Brooke MD LAB URINE ORDERABLES Final R esult [facility] [address] [place] [address], [place] [phone] * (ABNORMAL) Lipid panel with reflex to direct LDL (12/26/2024 5:22 AM EDT) Cholesterol 107 0 - 200 mg/dL LAB CHEMISTRY METHOD 12/26/2024 11:09 AM [facility] Triglycerides 90 0 - 150 mg/dL LAB CHEMISTRY METHOD 12/26/2024 11:09 AM [facility] HDL 30(L) >=40 mg/dL LAB CHEMISTRY METHOD 12/26/2024 11:09 AM [facility] LDL Calculated 59 0 - 100 mg/dL LAB CHEMISTRY METHOD 12/26/2024 11:09 AM [facility] VLDL Cholesterol Sam 18 mg/dL LAB CHEMISTRY METHOD 12/26/2024 11:09 AM [facility] Non HDL Chol. (LDL+VLDL) 77 <145 mg/dL LAB CHEMISTRY METHOD 12/26/2024 11:09 AM EDT [facility] Chol/HDL Ratio 3.6 0.0 - 4.4 LAB CHEMISTRY METHOD 12/26/2024 11:09 AM EDT [facility] Blood Venous blood specimen / Unknown Venipuncture / Unknown 12/26/2024 5:22 AM EDT 12/26/2024 9:53 AM EDT us Regino Brooke MD LAB BLOOD ORDERABLES Final R esult [facility] [address] [place] [address], from Last 3 Months or Most Recently Relevant to Health Maintenance Insurance MEDICAID - [place] Care Teams Engine Test Cell Technician Relationship Specialty Start Date End Date Regino Brooke MD [address] [place] [address] PCP - General Family Medicine 07/12/24
--- OUTSIDE RECORDS SUMMARY | 2025-06-22 06:56 | XMS_ITS | Encounter Summary ---
Author Organization [employer] Address [address] [place] [address] Care Team Providers Care Maintenance Inspector Name Role Phone Regino Brooke MD Primary Care Provider [phone] Encounter Details Date Type Department Care Team (Late st Contact Info) Description 02/04/2025 Lab Requisition [facility] - Main Lab [address] [place] [address] Reigno Brooke MD [address] [place] [address] Anemia, unspecified; Essential (primary) hypertension Social History Tobacco [...] Associated Diagnosis Comments COMPLETE BLOOD COUNT Routine 02/04/2025 7:37 AM EDT Anemia, unspecified Essential (primary) hypertension BASIC METABOLIC PANEL Routine 02/04/2025 7:37 AM EDT Anemia, unspecified Essential (primary) hypertension documented in this encounter Results * (ABNORMAL) Basic metabolic panel (02/04/2025 7:37 AM EDT) Sodium 139 133 - 145 mmol/L LAB CHEMISTRY METHOD 02/04/2025 5:23 PM EDT [facility] Potassium 3.2(L) 3.5 - 5.5 mmol/L LAB CHEMISTRY METHOD 02/04/2025 5:23 PM EDT [facility] Chloride 106 96 - 110 mmol/L LAB CHEMISTRY METHOD 02/04/2025 5:23 PM [facility] CO2 28 21 - 32 mmol/L LAB CHEMISTRY METHOD 02/04/2025 5:23 PM [facility] Anion Gap 5 3 - 11 LAB CHEMISTRY METHOD 02/04/2025 5:23 PM [facility] Glucose 81 70 - 100 mg/dL LAB CHEMISTRY METHOD 02/04/2025 5:23 PM [facility] BUN 9 5 - 25 mg/dL LAB CHEMISTRY METHOD 02/04/2025 5:23 PM [facility] Creatinine 1.43(H) 0.70 - 1.30 mg/dL LAB CHEMISTRY METHOD 02/04/2025 5:23 PM [facility] eGFR 51(L) >=60 mL/min/1. 73m2 LAB CHEMISTRY METHOD 02/04/2025 5:23 PM [facility] Comment:Calculation based on the Chronic Kidney Disease Epidemiology Collaboration (CKD-EPI) equation refit without adjustment for race. BUN/Creatinine Ratio 6.3 LAB CHEMISTRY METHOD 02/04/2025 5:23 PM [facility] Calcium 8.4(L) 8.5 - 10.5 mg/dL LAB CHEMISTRY METHOD 02/04/2025 5:23 PM [facility] Blood Venous blood specimen / Unknown Venipuncture / Unknown 02/04/2025 7:37 AM EDT 02/04/2025 12:06 PM EDT us Regino Brooke MD LAB BLOOD ORDERABLES Final R esult [facility] [address] [place] [address], * (ABNORMAL) Complete blood count (02/04/2025 7:37 AM EDT) WBC 3.3(L) 4.8 - 10.8 K/mcL LAB HEMETOLOGY METHOD 02/04/2025 1:43 PM [facility] RBC 4.30(L) 4.50 - 5.50 M/mcL LAB HEMETOLOGY METHOD 02/04/2025 1:43 PM [facility] Hemoglobin 13.5 13.5 - 17.5 g/dL LAB HEMETOLOGY METHOD 02/04/2025 1:43 PM [facility] Hematocrit 42.2 42.0 - 54.0 % LAB HEMETOLOGY METHOD 02/04/2025 1:43 PM [facility] MCV 97.7 79.0 - 98.0 FL LAB HEMETOLOGY METHOD 02/04/2025 1:43 PM [facility] MCH 31.3 27.0 - 32.0 pcg LAB HEMETOLOGY METHOD 02/04/2025 1:43 PM [facility] MCHC 32.0 32.0 - 37.0 g/dL LAB HEMETOLOGY METHOD 02/04/2025 1:43 PM [facility] RDW 15.1(H) 11.0 - 15.0 % LAB HEMETOLOGY METHOD 02/04/2025 1:43 PM [facility] Platelets 188 130 - 400 K/mcL LAB HEMETOLOGY METHOD 02/04/2025 1:43 PM [facility] MPV 10.0 7.0 - 11.0 FL LAB HEMETOLOGY METHOD 02/04/2025 1:43 PM [facility] NRBC 0.0 <1.0 % LAB HEMETOLOGY METHOD 02/04/2025 1:43 PM [facility] NRBC Absolute 0.00 <0.10 K/mcL LAB HEMETOLOGY METHOD 02/04/2025 1:43 PM [facility] Blood Venous blood specimen / Unknown Venipuncture / Unknown 02/04/2025 7:37 AM EDT 02/04/2025 12:06 PM EDT us Regino Brooke MD LAB BLOOD ORDERABLES Final R esult [facility] [address] [place] [address], documented in this encounter Visit Diagnoses Diagnosis Anemia, unspecified Essential (primary) hypertension Unspecified essential hypertension documented in this encounter Additional Health Concerns Infection Onset Date Last Indicated Resolved Time C. difficile Rule-Out 02/16/2025 02/16/20252024 11:14 AM EDT documented as of this encounter Care Teams Maintenance Inspector Relationship Specialty Start Date End Date Regino Brooke MD [address] [place] [address] PCP - General Family Medicine 07/12/24 documented as of this encounter
--- OUTSIDE RECORDS SUMMARY | 2025-06-22 06:56 | XMS_ITS | Encounter Summary ---
Author Organization [employer] Address [address] [place] [address] Care Team Providers Care Automation Software Engineer Name Role Phone Regino Brooke MD Primary Care Provider [phone] Encounter Details Date Type Department Care Team (Late st Contact Info) Description 12/26/2024 Lab Requisition [facility] - Main Lab [address] [place] [address] Regino Brooke MD [address] [place] [address] Anemia, unspecified Social History Tobacco [...] Routine 12/26/2024 5:22 AM EDT Anemia, unspecified COMPLETE BLOOD COUNT Routine 12/26/2024 5:22 AM EDT Anemia, unspecified COMPREHENSIVE METABOLIC PANEL Routine 12/26/2024 5:22 AM EDT Anemia, unspecified documented in this encounter Results * (ABNORMAL) Lipid panel with reflex to direct LDL (12/26/2024 5:22 AM EDT) Cholesterol 107 0 - 200 mg/dL LAB CHEMISTRY METHOD 12/26/2024 11:09 AM EDT [facility] Triglycerides 90 0 - 150 mg/dL LAB CHEMISTRY METHOD 12/26/2024 11:09 AM EDT [facility] HDL 30(L) >=40 mg/dL LAB CHEMISTRY METHOD 12/26/2024 11:09 AM [facility] LDL Calculated 59 0 - 100 mg/dL LAB CHEMISTRY METHOD 12/26/2024 11:09 AM [facility] VLDL Cholesterol Sam 18 mg/dL LAB CHEMISTRY METHOD 12/26/2024 11:09 AM [facility] Non HDL Chol. (LDL+VLDL) 77 <145 mg/dL LAB CHEMISTRY METHOD 12/26/2024 11:09 AM [facility] Chol/HDL Ratio 3.6 0.0 - 4.4 LAB CHEMISTRY METHOD 12/26/2024 11:09 AM [facility] Blood Venous blood specimen / Unknown Venipuncture / Unknown 12/26/2024 5:22 AM EDT 12/26/2024 9:53 AM EDT Regino Brooke MD LAB BLOOD ORDERABLES Final R esult [facility] [address] [place] [address], [place] [phone] * (ABNORMAL) Comprehensive metabolic panel (12/26/2024 5:22 AM EDT) Sodium 138 133 - 145 mmol/L LAB CHEMISTRY METHOD 12/26/2024 11:09 AM [facility] Potassium 4.2 3.5 - 5.5 mmol/L LAB CHEMISTRY METHOD 12/26/2024 11:09 AM [facility] Chloride 102 96 - 110 mmol/L LAB CHEMISTRY METHOD 12/26/2024 11:09 AM [facility] CO2 29 21 - 32 mmol/L LAB CHEMISTRY METHOD 12/26/2024 11:09 AM [facility] Anion Gap 7 3 - 11 LAB CHEMISTRY METHOD 12/26/2024 11:09 AM [facility] Glucose 83 70 - 100 mg/dL LAB CHEMISTRY METHOD 12/26/2024 11:09 AM [facility] BUN 12 5 - 25 mg/dL LAB CHEMISTRY METHOD 12/26/2024 11:09 AM [facility] Creatinine 1.87(H) 0.70 - 1.30 mg/dL LAB CHEMISTRY METHOD 12/26/2024 11:09 AM [facility] eGFR 37(L) >=60 mL/min/1. 73m2 LAB CHEMISTRY METHOD 12/26/2024 11:09 AM [facility] Comment:Calculation based on the Chronic Kidney Disease Epidemiology Collaboration (CKD-EPI) equation refit without adjustment for race. BUN/Creatinine Ratio 6.4 LAB CHEMISTRY METHOD 12/26/2024 11:09 AM [facility] Calcium 8.6 8.5 - 10.5 mg/dL LAB CHEMISTRY METHOD 12/26/2024 11:09 AM [facility] AST (SGOT) 22 10 - 42 unit/L LAB CHEMISTRY METHOD 12/26/2024 11:09 AM [facility] ALT (SGPT) 10 10 - 60 unit/L LAB CHEMISTRY METHOD 12/26/2024 11:09 AM [facility] Alkaline Phosphatase 115 42 - 121 unit/L LAB CHEMISTRY METHOD 12/26/2024 11:09 AM [facility] Total Protein 6.4 6.0 - 8.0 g/dL LAB CHEMISTRY METHOD 12/26/2024 11:09 AM [facility] Albumin 2.3(L) 3.2 - 5.0 g/dL LAB CHEMISTRY METHOD 12/26/2024 11:09 AM [facility] Total Bilirubin 0.8 0.0 - 1.4 mg/dL LAB CHEMISTRY METHOD 12/26/2024 11:09 AM [facility] Blood Venous blood specimen / Unknown Venipuncture / Unknown 12/26/2024 5:22 AM EDT 12/26/2024 9:53 AM EDT us Regino Brooke MD LAB BLOOD ORDERABLES Final R esult [facility] [address] [place] [address], * (ABNORMAL) Complete blood count (12/26/2024 5:22 AM EDT) [facility] WBC 5.0 4.8 - 10.8 K/mcL LAB HEMETOLOGY [facility] RBC 4.10(L) 4.50 - 5.50 M/mcL LAB HEMETOLOGY METHOD 12/26/2024 10[facility] Hemoglobin 12.7(L) 13.5 - 17.5 g/dL LAB HEMETOLOGY METHOD 12/26/2024 10:30 AM [facility] Hematocrit 39.7(L) 42.0 - 54.0 % LAB HEMETOLOGY METHOD 12/26/2024 10:30 AM [facility] MCV 97.5 79.0 - 98.0 FL LAB HEMETOLOGY METHOD 12/26/2024 10:[facility] MCH 31.2 27.0 - 32.0 pcg LAB HEMETOLOGY METHOD 12/26/2024 10:30 AM [facility] MCHC 32.0 32.0 - 37.0 g/dL LAB HEMETOLOGY METHOD 12/26/2024 10:30 AM [facility] RDW 13.8 11.0 - 15.0 % LAB HEMETOLOGY METHOD 12/26/2024 10:30 AM [facility] Platelets 293 130 - 400 K/mcL LAB HEMETOLOGY METHOD 12/26/2024 10:30 AM EDT [facility] MPV 8.9 7.0 - 11.0 FL LAB HEMETOLOGY METHOD 12/26/2024 10:30 AM EDT [facility] NRBC 0.0 <1.0 % LAB HEMETOLOGY METHOD 12/26/2024 10:30 AM EDT [facility] NRBC Absolute 0.00 <0.10 K/mcL LAB HEMETOLOGY METHOD 12/26/2024 10:30 AM EDT [facility] Blood Venous blood specimen / Unknown Venipuncture / Unknown 12/26/2024 5:22 AM EDT 12/26/2024 9:53 AM EDT us Regino Brooke MD LAB BLOOD ORDERABLES Final R esult [facility] [address] [place] [address], documented in this encounter Visit Diagnoses Diagnosis Anemia, unspecified documented in this encounter Additional Health Concerns Infection Onset Date Last Indicated Resolved Time C. difficile Rule-Out 02/16/2025 02/16/20252024 11:14 AM EDT documented as of this encounter Care Teams Automation Software Engineer Relationship Specialty Start Date End Date Regino Brooke MD [address] [place] [id number] PCP - General Family Medicine 07/12/24 documented as of this encounter
--- NOTE | 2025-06-22 06:58 | ED.FALL ---
HPI - Fall General Chief Complaint: Fall Stated Complaint: UNWIT FALL/2FT,BEDBOUND,+PLAVIX,+CCOLLAR,SNF Time Seen by Provider: 06/22/25 06:41 Source: patient and EMS Mode of arrival: EMS History of Present Illness HPI Narrative: This is a 75 years old the patient brought from halfway after a fall. The fall was out of the bed. He was sent here for evaluation he arrived with a C-collar. He has a history of hypertension ,CAD ,unspecified dementia at baseline he is not ambulatory. half-way staff was concerned because of the fall in a patient taking Plavix complaint: fall Onset (ago): hour(s) (1) Fall from: standing Fall witnessed: yes, by living facility staff Place fall occurred: halfway/SNF Loss of consciousness: none Prolonged down time: no Symptoms prior to fall: none Context: tripped/slipped Related Data Previous Rx's ?Medication ?Instructions ?Recorded cephalexin 500 mg capsule 500 mg PO Q8H #20 caps 06/22/25 Allergies Allergy/AdvReac Type Severity Reaction Status Date / Time No Known Allergies Allergy Verified 06/22/25 06:45 Review of Systems Review of Systems: Yes Other (dementia) [facility] Past Medical History Attestation statement: The following information was validated with the patient. [facility] Narrative: Coronary artery disease, BPH, CKD stage 3, unspecified dementia, stroke Social History Social History Advance Directives: No Advance Directives Information Provided: Yes Physical Exam Exam: Exam: No acute distress the patient is awake alert oriented x3 he is able to tell me that he is at [facility] Vital Signs: Vital Signs: Last Vital Signs Temp 0 F L 06/22/25 09:28 Pulse 71 06/22/25 09:28 Resp 16 06/22/25 09:28 BP 117/76 06/22/25 09:28 Pulse Ox 100 06/22/25 08:31 O2 Del Method Room Air 06/22/25 08:31 BMI result Body Mass Index 27.2 Const: General: cooperative, comfortable and no acute distress Nutritional Appearance: average body habitus Orientation/consciousness: oriented to place HEENT: Head: Yes normal to inspection and Yes No palpable skull fracture present General nose exam: Normal external nose present Mouth: Normal oral and palatal mucosa present Neck: Other: C-collar on Chest: Chest palpation & inspection: normal inspection of the chest Resp: Effort & Inspection: normal respiratory effort Auscultation: clear to auscultation bilaterally Cardio: Jugular venous distension: no JVD Rate: regular rate Rhythm: regular rhythm GI: Inspection: Yes normal to inspection Palpation (GI): Soft to palpation, not firm and nontender Neuro: Other: Patient has a right-sided weakness per patient is old secondary to CVA General: oriented to place Cranial nerves: Yes CN's II-XII intact bilaterally Course Reevaluation(s) Reevaluation #1: CT head and C-spine negative anticipate discharge UA noted we will prescribe an antibiotic Time: 09:09 Medical Decision Making Medical Decision Making [facility] Narrative: Patient is here after a fall we get ST-T C-spine I do not think we need to do any blood work I do not think we need to do any EKG that he has no syncope fall is mechanical Differential Diagnosis Differential Diagnoses: The differential diagnosis associated with the presentation includes Subdural hematoma/epidural hematoma/cervical spine fracture Lab Data [facility] Lab Attestation statement: I reviewed the patient's lab results. Labs: Lab Results 06/22/25 Range/Units 08:47 Urine Color Yellow Urine Appearance Turbid Urine pH 7.5 (5.0-9.0) Ur Specific [place] 1.015 (1.005-1.025) Urine Protein 100 (2+) H (Neg-Trace) mg/dL Urine Glucose (UA) Negative (Negative) mg/dL Urine Ketones Trace (Negative) mg/dL Urine Blood Large (3+) H (Negative) Urine Nitrite Positive H (Negative) Ur Leukocyte Esterase Large (3+) H (Negative) Urine RBC >20 H (0-2) /HPF Urine WBC >50 H (0-5) /HPF Urine WBC Clumps Present Ur Squamous Epith Cells 11-20 (0-2) /HPF Urine Bacteria 4+ (None Seen) Hyaline Casts 6-10 (0-2) /LPF Discharge Plan Discharge Clinical Impression: Fall in elderly patient, Acute UTI Head injury Qualifiers: Encounter type: initial encounter Qualified Code(s): S09.90XA - Unspecified injury of head, initial encounter Patient Disposition: er [facility] Transfer Details: BACK TO [facility] Instructions: Urinary Tract Infection in Men (DC), Head Injury (DC) Additional Instructions: Take cephalexin as directed return to the emergency room if worse Prescriptions: New cephalexin 500 mg capsule 500 mg PO Q8H Qty: 20 0RF Referrals: DR ABIGAIL RIVERA @ [facility] [Other] [facility] [Outside] Interventions: ED Discharge Assessment Last Done: 06/22/25 09:28 Print Language: Sierra Leonean
[2025-06-22 08:31] VITALS: BP 157/114; PULSE 70; RESP 16; TEMP 36.8; O2SAT 100
--- NOTE | 2025-06-22 08:38 | PC.NURSE ---
Care of Pt assumed at change of shift. Pt rests quietly without apparent distress Awaiting CT scan results. Pt hypertensive at this time; BP reported verbally to Dr. Conrad. Hygiene and toileting care completed by crawler dragline operator at this time.
[2025-06-22 08:57] LABS: Appearance Urine Turbid; Glucose Urine UA Negative (Negative); PH 7.5 (5.0-9.0); Specific Gravity - Urine 1.015 (1.005-1.025); UMIC TRIGGER UACC YES
--- NOTE | 2025-06-22 09:20 | PC.NURSE ---
Pt cleared for D/C back to [facility] Call placed to [facility] @ [phone] at 0921. Spoke with DAXA Lamb; RN to RN report completed. Zainab aware Pt with findings of UTI and will have paper script for Cephalexin. ED community associate notified Pt will need ambulance transport back.
[2025-06-22 09:23] VITALS: BP 117/76; PULSE 71; RESP 16
[2025-06-22 09:28] VITALS: BP 117/76; PULSE 71; RESP 16; TEMP -17.7; TEMP 0
[2025-06-22 09:40] LABS: UACC Culture Trigger YES
[2025-06-22 10:16] VITALS: BP 138/105; PULSE 74; RESP 14; TEMP 36.3; O2SAT 95
--- NOTE | 2025-06-22 12:21 | PC.NURSE ---
[facility] arrives to transport Pt back to [facility]. RN report given to EMS staff. BP noted to be elevated at this time: 152/107. Pt reports he has not had his BP meds yet today. BP reviewed with Dr. Conrad and made aware of BP medications not yet given. Per Dr. Conrad, Pt is cleared for d/c at this time.
== END 2025-06-22 12:16 ==
PROVIDERS: Emergency Provider Emergency Medicine
DX: S09.90XA Unspecified injury of head, initial encounter (principal); R51.9 Headache, unspecified; M54.2 Cervicalgia; N39.0 Urinary tract infection, site not specified; I25.10 Atherosclerotic heart disease of native coronary artery without angina pectoris; X58.XXXA Exposure to other specified factors, initial encounter; W06.XXXA Fall from bed, initial encounter; Z91.81 History of falling; Y93.9 Activity, unspecified; Y92.9 Unspecified place or not applicable; Y99.8 Other external cause status; Z79.01 Long term (current) use of anticoagulants; Z86.73 Personal history of transient ischemic attack (TIA), and cerebral infarction without residual deficits
CPT/HCPCS: 70450; 72125; 81001; 87086; 99284

== ENCOUNTER → 2025-06-22 06:42 | Outpatient (BNV) | payer MEDICAID, SELFPAY | PROVIDERS: Emergency Provider Emergency Medicine; Visit Provider Radiology Vascular & Interventional Radiology | DX: Z04.3 Encounter for examination and observation following other accident (principal) | CPT/HCPCS: 70450; 72125 ==